=== PATIENT | male | born 1985 | race Caucasian/White ===

== ENCOUNTER 2016-04-19 16:18 | Emergency (ER) | payer OTHER ==
[2016-04-19 16:29] VITALS: TEMP 97.3
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
[2016-04-19 19:51] VITALS: BP 140/86; PULSE 54; RESP 16
== END 2016-04-19 19:51 | disposition home or self-care (01) ==
LOC: EC 16:18
DX: F41.9 Anxiety disorder, unspecified (principal); F10.20 Alcohol dependence, uncomplicated; G40.909 Epilepsy, unspecified, not intractable, without status epilepticus; I10 Essential (primary) hypertension; F31.9 Bipolar disorder, unspecified; Z79.899 Other long term (current) drug therapy; Z88.5 Allergy status to narcotic agent; Z87.442 Personal history of urinary calculi; B19.20 Unspecified viral hepatitis C without hepatic coma; F17.200 Nicotine dependence, unspecified, uncomplicated
CPT/HCPCS: 80306; 82075; 99284

== ENCOUNTER 2016-04-20 10:31 | Emergency (ER) | payer OTHER ==
[2016-04-20 11:21] VITALS: RESP 18
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
[2016-04-20] MEDS ORDERED: LORazepam 1 MG TAB PO STA (15:34)
[2016-04-20 16:10] VITALS: BP 120/68; PULSE 88; TEMP 97.6
== END 2016-04-20 16:10 | disposition home or self-care (01) ==
LOC: EC 10:31
DX: F31.9 Bipolar disorder, unspecified (principal); I10 Essential (primary) hypertension; G40.909 Epilepsy, unspecified, not intractable, without status epilepticus; F41.9 Anxiety disorder, unspecified; F43.10 Post-traumatic stress disorder, unspecified; F17.200 Nicotine dependence, unspecified, uncomplicated; F12.90 Cannabis use, unspecified, uncomplicated; Z88.5 Allergy status to narcotic agent; Z79.899 Other long term (current) drug therapy; Z79.51 Long term (current) use of inhaled steroids
CPT/HCPCS: 80306; 82075; 99284

== ENCOUNTER → 2016-05-01 | Outpatient (CLI) | payer OTHER ==
[2016-05-01 20:12] LABS: Anion Gap 15 mmol/L; Blood Urea Nitrogen 12 mg/dL (9-20); Calcium 9.7 mg/dL (8.4-10.2); Carbon Dioxide 24 mmol/L (22-30); Chloride 102 mmol/L (98-107); Glucose 104 mg/dL (74-99); Non-African American GFR(MDRD) >60 (>60 ml/min/1.73 sqM); Potassium 3.7 mmol/L (3.5-5.1); Sodium 141 mmol/L (137-145)
== END | disposition home or self-care (01) ==
LOC: LAB 19:25
PROVIDERS: ATTEND Psychiatry & Neurology Psychiatry
DX: T50.905A Adverse effect of unspecified drugs, medicaments and biological substances, initial encounter (principal)
CPT/HCPCS: 80048; 80164

== ENCOUNTER 2017-02-27 08:14 | Emergency (ER) | payer OTHER ==
[2017-02-27 08:27] VITALS: RESP 18
[2017-02-27] MEDS ORDERED: ONDANSETRON 4 MG/2 ML VIAL IVP STA ×2 (08:42→10:29)
[2017-02-27] MEDS ORDERED: FAMOTIDINE 20 MG/2 ML VIAL IV STA (08:42)
--- NOTE | 2017-02-27 08:43 | ED ---
General Adult HPI - General Chief complaint: Abdominal Pain Stated complaint: Abd.pain Time Seen by Provider: 02/27/17 08:31 Source: patient, RN notes reviewed Mode of arrival: wheelchair Limitations: no limitations - History of Present Illness Initial comments: Patient 31-year-old male who presents emergency room today with chief complaint of chronic abdominal pain has been ongoing off and on over the last 5 months. He has been that he's had nausea vomiting and some softer stools. He admits that he feels some discomfort and cramping sensation in his abdomen at times. He also has some chronic shoulder pain as well. He states is from an old injury. He denies any new injuries. He does admit that the pain is worse certain movements. He denies any other complaints associated symptoms. Patient denies any recent fever, chills, shortness of breath, chest pain, back pain, numbness or tingling, dysuria or hematuria, constipation or diarrhea, headaches or visual changes, or any other complaints. - Related Data Home Medications Medication Instructions Recorded Confirmed Multivitamins, Thera [Multivitamin 1 tab PO DAILY 02/27/17 02/27/17 (formulary)] Previous Rx's Medication Instructions Recorded Hydrocodone/Acetaminophen [[place] 1 each PO Q6HR PRN #15 tab 02/27/17 5-325] Ibuprofen [Motrin] 800 mg PO Q6HR #30 tab 02/27/17 Ondansetron Odt [Zofran ODT] 4 mg PO Q8HR PRN #20 tab 02/27/17 Tamsulosin [Flomax] 0.4 mg PO DAILY #10 cap 02/27/17 Allergies Allergy/AdvReac Type Severity Reaction Status Date / Time tramadol Allergy HIVES AND Verified 02/27/17 08:35 SEIZURE Review of Systems ROS Statement: Those systems with pertinent positive or pertinent negative responses have been documented in the HPI. ROS Other: All systems not noted in ROS Statement are negative. Past Medical History Past Medical History: Hypertension, Seizure Disorder Additional Past Medical History / Comment(s): Hepatitis C, stomach ulcer, weight loss, ETOH abuse, kidney stones History of Any Multi-Drug Resistant Organisms: None Reported Additional Past Surgical History / Comment(s): lazy eye surgery, right ankle surgery Past Anesthesia/Blood Transfusion Reactions: No Reported Reaction Past Psychological History: Anxiety, Bipolar, Depression, PTSD Smoking Status: Current every day smoker Past Alcohol Use History: Occasional Past Drug Use History: Marijuana - Past Family History Father Additional Family Medical History / Comment(s): cirrhosis of liver Mother Additional Family Medical History / Comment(s): cirrhosis of liver and heroin overdose General Exam - General Exam Comments Initial Comments: General: The patient is awake and alert, in no distress, and does not appear acutely ill. Eye: Pupils are equal, round and reactive to light, extra-ocular movements are intact. No nystagmus. There is normal conjunctiva bilaterally. No signs of icterus. Ears, nose, mouth and throat: There are moist mucous membranes and no oral lesions. Neck: The neck is supple, there is no tenderness or JVD. Cardiovascular: There is a regular rate and rhythm. No murmur, rub or gallop is appreciated. Respiratory: Lungs are clear to auscultation, respirations are non-labored, breath sounds are equal. No wheezes, stridor, rales, or rhonchi. Gastrointestinal: Soft, non-distended, non-tender abdomen without masses or organomegaly noted. There is no rebound or guarding present. No CVA tenderness. Bowel sounds are unremarkable. Musculoskeletal: Normal ROM, no tenderness. Strength 5/5. Sensation intact. Pulses equal bilaterally 2+. Neurological: A&O x 3. CN II-XII intact, There are no obvious motor or sensory deficits. Coordination appears grossly intact. Speech is normal. Skin: Skin is warm and dry and no rashes or lesions are noted. Psychiatric: Cooperative, appropriate mood & affect, normal judgment. Limitations: no limitations Course Vital Signs 02/27/17 08:24 Temperature 98.0 F Pulse Rate 76 Respiratory 18 Rate Blood Pressure 129/85 O2 Sat by Pulse 100 Oximetry Medical Decision Making - Medical Decision Making Patient reexamined at this time shows no signs of distress. He does admit to some discomfort. Patient's labs were reviewed and does show a large amount of blood in his urine. He does be to history kidney stones but states this did not seem similar. Patient did have CT which does show a 4 mm calculus at the mid right ureter without appreciable hydronephrosis at this time. Bilateral nonobstructive nephrolithiasis measuring 4 mm on either side. There is hepatic stenosis. Patient's liver enzymes mildly elevated. This hematocrit being a drinker in the past. Patient as well as follow-up family doctor for elevated liver enzymes. Also be given urology on-call for kidney stone. Patient does admit some right-sided chronic shoulder pain given orthopedics on-call for this. Patient advised return if symptoms increase worsen or for any other concerns. - Lab Data Result diagrams: 02/27/17 08:50 02/27/17 08:50 Lab Results 02/27/17 02/27/17 02/27/17 Range/Units 08:50 08:50 08:50 WBC 6.1 (3.8-10.6) k/uL RBC 5.81 (4.30-5.90) m/uL Hgb 17.5 (13.0-17.5) gm/dL Hct 51.3 (39.0-53.0) % MCV 88.4 (80.0-100.0) fL MCH 30.1 (25.0-35.0) pg MCHC 34.0 (31.0-37.0) g/dL RDW 14.9 (11.5-15.5) % Plt Count 189 (150-450) k/uL Neutrophils % 70 % Lymphocytes % 19 % Monocytes % 7 % Eosinophils % 2 % Basophils % 0 % Neutrophils # 4.3 (1.3-7.7) k/uL Lymphocytes # 1.1 (1.0-4.8) k/uL Monocytes # 0.4 (0-1.0) k/uL Eosinophils # 0.1 (0-0.7) k/uL Basophils # 0.0 (0-0.2) k/uL Sodium 139 (137-145) mmol/L Potassium 4.1 (3.5-5.1) mmol/L Chloride 101 (98-107) mmol/L Carbon Dioxide 25 (22-30) mmol/L Anion Gap 13 mmol/L BUN 9 (9-20) mg/dL Creatinine 0.76 (0.66-1.25) mg/dL Est GFR (MDRD) Af Amer >60 (>60 ml/min/1.73 sqM) Est GFR (MDRD) Non-Af >60 (>60 ml/min/1.73 sqM) Glucose 95 (74-99) mg/dL Calcium 9.9 (8.4-10.2) mg/dL Total Bilirubin 0.5 (0.2-1.3) mg/dL AST 90 H (17-59) U/L ALT 121 H (21-72) U/L Alkaline Phosphatase 144 H (38-126) U/L Total Protein 8.1 (6.3-8.2) g/dL Albumin 4.6 (3.5-5.0) g/dL Amylase 43 (30-110) U/L Lipase 59 (23-300) U/L Urine Color Light Red Urine Appearance Clear (Clear) Urine pH 6.5 (5.0-8.0) Ur Specific [place] 1.027 (1.001-1.035) Urine Protein 1+ H (Negative) Urine Glucose (UA) Negative (Negative) Urine Ketones Trace H (Negative) Urine Blood Large H (Negative) Urine Nitrite Negative (Negative) Urine Bilirubin Negative (Negative) Urine Urobilinogen 6.0 (<2.0) mg/dL Ur Leukocyte Esterase Small H (Negative) Urine RBC >182 H (0-5) /hpf Urine WBC 1 (0-5) /hpf Urine Bacteria Rare H (None) /hpf Urine Mucus Few H (None) /hpf Disposition Clinical Impression: Kidney stone on right side, Chronic right shoulder pain, Elevated liver enzymes Disposition: HOME SELF-CARE Condition: Good Instructions: Kidney Stones (ED) Additional Instructions: Please use medication as discussed. Please follow-up with orthopedics/urologist /family doctor in the next 2 days. Please return to emergency room if the symptoms increase or worsen or for any other concerns. Prescriptions: Hydrocodone/Acetaminophen [[place] 5-325] 1 each PO Q6HR PRN #15 tab PRN Reason: Pain Ibuprofen [Motrin] 800 mg PO Q6HR #30 tab Ondansetron Odt [Zofran ODT] 4 mg PO Q8HR PRN #20 tab PRN Reason: Nausea Tamsulosin [Flomax] 0.4 mg PO DAILY #10 cap Referrals: Lisa Meek MD [Primary Care Provider] - 1-2 days Wilian Haines MD [STAFF PHYSICIAN] - 1-2 days Yayo Dan MD [STAFF PHYSICIAN] - 1-2 days Time of Disposition: 10:39
[2017-02-27 09:20] LABS: Basophils % (A) 0 %; CH 30.2; CHCM 34.4; Eosinophils # (A) 0.1 k/uL (0-0.7); Eosinophils % (A) 2 %; HCT 51.3 % (39.0-53.0); HDW 2.42; HGB 17.5 gm/dL (13.0-17.5); Luc # (Auto) 0.08; Luc % (Auto) 1; Lymphocytes # (A) 1.1 k/uL (1.0-4.8); Lymphocytes % (A) 19 %; MCH 30.1 pg (25.0-35.0); MCV 88.4 fL (80.0-100.0); Mean Platelet Volume 8.1; Monocytes # (A) 0.4 k/uL (0-1.0); Monocytes % (A) 7 %; Neutrophils # (A) 4.3 k/uL (1.3-7.7); Neutrophils % (A) 70 %; RBC 5.81 m/uL (4.30-5.90); RDW 14.9 % (11.5-15.5); WBC 6.1 k/uL (3.8-10.6); WBC (Perox) 5.98
--- NOTE | 2017-02-27 09:22 | XR ---
EXAMINATION TYPE: XR KUB DATE OF EXAM: 02/27/2017 9:15 AM CLINICAL HISTORY: Lower abdominal pain for 5 months with vomiting. TECHNIQUE: Two Upright KUB images of the abdomen are obtained. COMPARISON: CT abdomen and pelvis April 14, 2016. Abdominal x-ray April 03, 2016. FINDINGS: Bilateral renal calculi are redemonstrated seen better on CT versus plain films. On plain f ilms there are 3-5 small calculi identified bilaterally on measuring under 5 [address] in size[address] On CT there are approximately 8-10 calculi bilaterally all measuring under 5 mm in size. There is overall nonobstructive bowel gas pattern. Visualized lung bases are clear. No pneumoperitone um is present. Visualized osseous structures are intact. IMPRESSION: Overall nonobstructive bowel gas pattern. Redemonstration of bilateral nephrolithiasis.
[2017-02-27 09:29] LABS: Appearance,Urine Clear (Clear); Bacteria,Urine Rare /hpf; Bilirubin,Urine Negative (Negative); Glucose,Urine (UA) Negative (Negative); Ketones,Urine Trace (Negative); Leukocyte Esterase,Urine Small (Negative); Mucus,Urine Few /hpf; Nitrite,Urine Negative (Negative); PH, Urine 6.5 (5.0-8.0); Particle Count 4040; Protein,Urine 1+ (Negative); RBC,Urine >182 /hpf (0-5); Specific Gravity,Urine 1.027 (1.001-1.035); UA Billing (MACRO vs. MICRO) MICRO; WBC,Urine 1 /hpf (0-5)
[2017-02-27 09:34] LABS: ALT 121 U/L (21-72); AST 90 U/L (17-59); Alkaline Phosphatase 144 U/L (38-126); Amylase 43 U/L (30-110); Anion Gap 13 mmol/L; Blood Urea Nitrogen 9 mg/dL (9-20); Calcium 9.9 mg/dL (8.4-10.2); Carbon Dioxide 25 mmol/L (22-30); Chloride 101 mmol/L (98-107); Glucose 95 mg/dL (74-99); Non-African American GFR(MDRD) >60 (>60 ml/min/1.73 sqM); Potassium 4.1 mmol/L (3.5-5.1); Sodium 139 mmol/L (137-145); Total Bilirubin 0.5 mg/dL (0.2-1.3); Total Protein 8.1 g/dL (6.3-8.2)
--- NOTE | 2017-02-27 10:20 | CT ---
EXAMINATION TYPE: CT abdomen pelvis wo con DATE OF EXAM: 02/27/2017 COMPARISON: 04/14/2016 HISTORY: 31-year-old male right sided pain, umbilical pain, microscopic hematuria CT DLP: 682 mGycm. Automated exposure control for dose reduction was used. TECHNIQUE: Contiguous axial scanning of the abdomen and pelvis without IV contrast. Coronal and sagit eileen reconstructions performed. FINDINGS: The heart is normal size without pericardial effusion. Tiny hiatal hernia. Lung bases clear without p leural effusion. Diffuse low-attenuation of the hepatic parenchyma compatible with fatty infiltration. More focal fat anteriorly along the falciform ligament. Noncontrast appearance of the gallbladder, adrenal glands,, spleen, and pancreas show no gross abnorm ality. In the right kidney, there are 9 nonobstructive calculi measuring up to 4 mm. There is a 4 mm calculu s at the mid right ureter without hydronephrosis. On the left, there are 7 nonobstructive calculi measuring up to 4 mm. No dilated small bowel, free fluid, or free air. No mesenteric or retroperitoneal lymphadenopathy. Mild overall stool burden. There is some submucosal fat deposition noted within the right hemicolon a nd distal ileum which could reflect recurrent bouts of prior inflammation or intrahepatic from obesit y. Bladder nondistended. Prostate gland measures 3.8 cm wide. No abnormal fluid collection in the pelvis or pelvic lymphadenopathy. Bones: No osseous destructive process. Calculus at the mid right ureter but without significant hydronephrosis. IMPRESSION: 1. A 4 mm calculus at the mid right ureter without appreciable hydronephrosis at this time. 2. Bilateral nonobstructive nephrolithiasis measuring up to 4 mm on either side. 3. Hepatic steatosis.
[2017-02-27] MEDS ORDERED: KETOROLAC 30 MG/ML 1 ML VIAL IVP STA (10:21)
[2017-02-27 10:55] VITALS: BP 146/77; PULSE 65; TEMP 98.7
== END 2017-02-27 10:55 | disposition home or self-care (01) ==
LOC: EC 08:14
DX: N20.2 Calculus of kidney with calculus of ureter (principal); M25.511 Pain in right shoulder; G89.29 Other chronic pain; R74.8 Abnormal levels of other serum enzymes; K76.0 Fatty (change of) liver, not elsewhere classified; F17.200 Nicotine dependence, unspecified, uncomplicated; Z88.5 Allergy status to narcotic agent; Z79.899 Other long term (current) drug therapy
CPT/HCPCS: 99284; 96374; 96375 ×2; 96376; 36415; 80053; 82150; 83690; 85025; 81001; 74000; 74176; J2405; J1885

== ENCOUNTER 2017-03-13 13:25 | Emergency (ER) | payer OTHER ==
[2017-03-13 14:08] VITALS: RESP 18
[2017-03-13] MEDS ORDERED: ONDANSETRON 4 MG/2 ML VIAL IVP STA (15:43)
[2017-03-13] MEDS ORDERED: SODIUM CHLORIDE 0.9% 500 ML IV STA (15:43)
[2017-03-13] MEDS ORDERED: KETOROLAC 30 MG/ML 1 ML VIAL IVP STA (15:43)
--- NOTE | 2017-03-13 16:05 | ED ---
General Adult HPI - General Chief complaint: Abdominal Pain Stated complaint: poss kidney stones Time Seen by Provider: 03/13/17 14:10 Source: patient, RN notes reviewed Mode of arrival: ambulatory Limitations: no limitations - History of Present Illness Initial comments: This is a 31-year-old male presents emergency Department complaining that his kidney stone pain for last weeks to 2 weeks. Patient states the pain is not getting any better and he did not follow up with urology like he was told. Patient states she still nauseated and occasionally vomits. Patient states he still has some blood in his urine. Patient has no pain medicines left knee has no nausea medicine left. - Related Data Home Medications Medication Instructions Recorded Confirmed Multivitamins, Thera [Multivitamin 1 tab PO DAILY 02/27/17 03/13/17 (formulary)] Hydrocodone/Acetaminophen [[place] 1 tab PO Q6HR PRN 03/13/17 03/13/17 5-325] Previous Rx's Medication Instructions Recorded Ibuprofen [Motrin] 800 mg PO Q6HR #30 tab 02/27/17 Ondansetron Odt [Zofran ODT] 4 mg PO Q8HR PRN #20 tab 02/27/17 Tamsulosin [Flomax] 0.4 mg PO DAILY #10 cap 02/27/17 Ketorolac [Toradol] 10 mg PO Q6HR #15 tab 03/13/17 Ondansetron [Zofran] 4 mg PO Q6H PRN #10 tab 03/13/17 Allergies Allergy/AdvReac Type Severity Reaction Status Date / Time tramadol Allergy HIVES AND Verified 03/13/17 15:41 SEIZURE Review of Systems ROS Statement: Those systems with pertinent positive or pertinent negative responses have been documented in the HPI. ROS Other: All systems not noted in ROS Statement are negative. Past Medical History Past Medical History: Hypertension, Seizure Disorder Additional Past Medical History / Comment(s): Hepatitis C, stomach ulcer, weight loss, ETOH abuse, kidney stones History of Any Multi-Drug Resistant Organisms: None Reported Additional Past Surgical History / Comment(s): lazy eye surgery, right ankle surgery Past Anesthesia/Blood Transfusion Reactions: No Reported Reaction Past Psychological History: Anxiety, Bipolar, Depression, PTSD Smoking Status: Current every day smoker Past Alcohol Use History: Occasional Past Drug Use History: Marijuana - Past Family History Father Additional Family Medical History / Comment(s): cirrhosis of liver Mother Additional Family Medical History / Comment(s): cirrhosis of liver and heroin overdose General Exam - General Exam Comments Initial Comments: GENERAL: Patient is well-developed and well-nourished. Patient is nontoxic and well- hydrated and is in mild distress. ENT: Neck is soft and supple. No significant lymphadenopathy is noted. Oropharynx is clear. Moist mucous membranes. Neck has full range of motion without eliciting any pain. EYES: The sclera were anicteric and conjunctiva were pink and moist. Extraocular movements were intact and pupils were equal round and reactive to light. Eyelids were unremarkable. PULMONARY: Unlabored respirations. Good breath sounds bilaterally. No audible rales rhonchi or wheezing was noted. CARDIOVASCULAR: There is a regular rate and rhythm without any murmurs gallops or rubs. ABDOMEN: Soft and nontender with normal bowel sounds. No palpable organomegaly was noted. There is no palpable pulsatile mass. SKIN: Skin is clear with no lesions or rashes and otherwise unremarkable. NEUROLOGIC: Patient is alert and oriented x3. Cranial nerves II through XII are grossly intact. Motor and sensory are also intact. Normal speech, volume and content. Symmetrical smile. MUSCULOSKELETAL: Normal extremities with adequate strength and full range of motion. LYMPHATICS: No significant lymphadenopathy is noted PSYCHIATRIC: Normal psychiatric evaluation. Limitations: no limitations Course Vital Signs 03/13/17 03/13/17 14:06 16:50 Temperature 97.9 F 98.0 F Pulse Rate 74 54 L Respiratory 18 18 Rate Blood Pressure 139/96 138/81 O2 Sat by Pulse 98 99 Oximetry Medical Decision Making - Medical Decision Making I will back into reevaluate the patient he was in no distress his belly was nontender at this time. Patient states he has hepatitis C which was not told me initially. This explains the mildly elevated liver enzymes - Lab Data Result diagrams: 03/13/17 15:40 03/13/17 15:40 Lab Results 03/13/17 03/13/17 03/13/17 Range/Units 15:40 15:40 15:40 WBC 6.2 (3.8-10.6) k/uL RBC 5.54 (4.30-5.90) m/uL Hgb 16.6 (13.0-17.5) gm/dL Hct 48.2 (39.0-53.0) % MCV 87.0 (80.0-100.0) fL MCH 30.0 (25.0-35.0) pg MCHC 34.5 (31.0-37.0) g/dL RDW 13.4 (11.5-15.5) % Plt Count 166 (150-450) k/uL Neutrophils % 70 % Lymphocytes % 20 % Monocytes % 7 % Eosinophils % 1 % Basophils % 0 % Neutrophils # 4.3 (1.3-7.7) k/uL Lymphocytes # 1.3 (1.0-4.8) k/uL Monocytes # 0.4 (0-1.0) k/uL Eosinophils # 0.0 (0-0.7) k/uL Basophils # 0.0 (0-0.2) k/uL Sodium 139 (137-145) mmol/L Potassium 4.2 (3.5-5.1) mmol/L Chloride 105 (98-107) mmol/L Carbon Dioxide 25 (22-30) mmol/L Anion Gap 9 mmol/L BUN 7 L (9-20) mg/dL Creatinine 0.67 (0.66-1.25) mg/dL Est GFR (MDRD) Af Amer >60 (>60 ml/min/1.73 sqM) Est GFR (MDRD) Non-Af >60 (>60 ml/min/1.73 sqM) Glucose 100 H (74-99) mg/dL Calcium 9.7 (8.4-10.2) mg/dL Total Bilirubin 1.0 (0.2-1.3) mg/dL AST 85 H (17-59) U/L ALT 80 H (21-72) U/L Alkaline Phosphatase 136 H (38-126) U/L Total Protein 7.8 (6.3-8.2) g/dL Albumin 4.5 (3.5-5.0) g/dL Amylase 62 (30-110) U/L Lipase 57 (23-300) U/L Urine Color Dark Yellow Urine Appearance Clear (Clear) Urine pH 8.5 H (5.0-8.0) Ur Specific [place] 1.021 (1.001-1.035) Urine Protein 1+ H (Negative) Urine Glucose (UA) Negative (Negative) Urine Ketones Trace H (Negative) Urine Blood Negative (Negative) Urine Nitrite Negative (Negative) Urine Bilirubin 1+ H (Negative) Urine Urobilinogen 8.0 (<2.0) mg/dL Ur Leukocyte Esterase Negative (Negative) Urine RBC 1 (0-5) /hpf Urine WBC 1 (0-5) /hpf Urine Mucus Few H (None) /hpf Disposition Clinical Impression: Abdominal pain Disposition: HOME SELF-CARE Instructions: Abdominal Pain (ED) Prescriptions: Ketorolac [Toradol] 10 mg PO Q6HR #15 tab Ondansetron [Zofran] 4 mg PO Q6H PRN #10 tab PRN Reason: Nausea And Vomiting Referrals: Lisa Meek MD [Primary Care Provider] - 1-2 days Time of Disposition: 17:20
[2017-03-13 16:27] LABS: Basophils % (A) 0 %; CH 30.8; CHCM 35.6; Eosinophils % (A) 1 %; HCT 48.2 % (39.0-53.0); HDW 2.61; HGB 16.6 gm/dL (13.0-17.5); Luc # (Auto) 0.14; Luc % (Auto) 2; Lymphocytes # (A) 1.3 k/uL (1.0-4.8); Lymphocytes % (A) 20 %; MCHC 34.5 g/dL (31.0-37.0); Mean Platelet Volume 7.2; Monocytes # (A) 0.4 k/uL (0-1.0); Monocytes % (A) 7 %; Neutrophils # (A) 4.3 k/uL (1.3-7.7); Neutrophils % (A) 70 %; RBC 5.54 m/uL (4.30-5.90); RDW 13.4 % (11.5-15.5); WBC 6.2 k/uL (3.8-10.6); WBC (Perox) 5.81
[2017-03-13 16:32] LABS: Appearance,Urine Clear (Clear); Bilirubin,Urine 1+ (Negative); Glucose,Urine (UA) Negative (Negative); Ketones,Urine Trace (Negative); Leukocyte Esterase,Urine Negative (Negative); Mucus,Urine Few /hpf; Nitrite,Urine Negative (Negative); PH, Urine 8.5 (5.0-8.0); Particle Count 3227; Protein,Urine 1+ (Negative); RBC,Urine 1 /hpf (0-5); Specific Gravity,Urine 1.021 (1.001-1.035); UA Billing (MACRO vs. MICRO) MICRO; WBC,Urine 1 /hpf (0-5)
[2017-03-13 16:42] LABS: ALT 80 U/L (21-72); AST 85 U/L (17-59); Alkaline Phosphatase 136 U/L (38-126); Amylase 62 U/L (30-110); Anion Gap 9 mmol/L; Blood Urea Nitrogen 7 mg/dL (9-20); Calcium 9.7 mg/dL (8.4-10.2); Carbon Dioxide 25 mmol/L (22-30); Chloride 105 mmol/L (98-107); Glucose 100 mg/dL (74-99); Non-African American GFR(MDRD) >60 (>60 ml/min/1.73 sqM); Potassium 4.2 mmol/L (3.5-5.1); Sodium 139 mmol/L (137-145); Total Protein 7.8 g/dL (6.3-8.2)
[2017-03-13 16:53] VITALS: BP 138/81; PULSE 54; TEMP 98
== END 2017-03-13 17:39 | disposition home or self-care (01) ==
LOC: EC 13:25
DX: R10.9 Unspecified abdominal pain (principal); R11.2 Nausea with vomiting, unspecified; R31.9 Hematuria, unspecified; R74.8 Abnormal levels of other serum enzymes; F17.200 Nicotine dependence, unspecified, uncomplicated; Z79.899 Other long term (current) drug therapy; Z88.5 Allergy status to narcotic agent; Z83.79 Family history of other diseases of the digestive system
CPT/HCPCS: 36415; 80053; 82150; 83690; 85025; 81001; 99284; 96374; 96375; 96361; J2405; J1885

== ENCOUNTER 2017-04-05 01:58 | Emergency (ER) | payer OTHER ==
[2017-04-05 02:03] VITALS: BP 157/102; PULSE 77; RESP 20; TEMP 99
[2017-04-05] MEDS ORDERED: KETOROLAC 60 MG/2 ML VIAL IM STA (02:45)
[2017-04-05] MEDS ORDERED: AZITHROMYCIN 500 MG TAB PO STA (02:45)
[2017-04-05] MEDS ORDERED: IPRATROPIUM-ALBUTEROL 3 ML NEB INHALATION STA (02:45)
--- NOTE | 2017-04-05 02:47 | XR ---
EXAM: XR Chest, 2 Views CLINICAL HISTORY: Reason: Pain TECHNIQUE: Frontal and lateral views of the chest. COMPARISON: 04/04/16 FINDINGS: Lungs: Unremarkable. No consolidation. Pleural space: Unremarkable. No pneumothorax. Heart: Unremarkable. No cardiomegaly. Mediastinum: Unremarkable. Bones/joints: Unremarkable. IMPRESSION: No acute radiographic findings.
--- NOTE | 2017-04-05 02:49 | ED ---
General Adult HPI - General Chief complaint: Chest Pain Stated complaint: ETOH,cough Time Seen by Provider: 04/05/17 02:04 Source: EMS, RN notes reviewed, old records reviewed Mode of arrival: EMS Limitations: no limitations - History of Present Illness Initial comments: this is a 31-year-old male to the ER for evaluation. The patient presented for evaluation regards to chest pain abdominal pain. shortness of breath. Patient does admit to positive acute alcohol intoxication. Patient states symptoms for 6 days worsened today. Patient denies any recent sick contacts or travel history. No fevers. - Related Data Previous Rx's Medication Instructions Recorded Albuterol Sulfate [Proair Hfa] 1 - 2 puff INHALATION Q4H PRN #1 04/05/17 inhaler Azithromycin [Zithromax Z-pack] 0 mg PO DIRECTED #1 pack 04/05/17 Naproxen [Naprosyn] 500 mg PO Q12HR PRN #30 tab 04/05/17 Allergies Allergy/AdvReac Type Severity Reaction Status Date / Time tramadol Allergy HIVES AND Verified 03/27/17 14:20 SEIZURE Review of Systems ROS Statement: Those systems with pertinent positive or pertinent negative responses have been documented in the HPI. ROS Other: All systems not noted in ROS Statement are negative. Past Medical History Past Medical History: Hypertension, Seizure Disorder Additional Past Medical History / Comment(s): Hepatitis C, stomach ulcer, weight loss, ETOH abuse, kidney stones History of Any Multi-Drug Resistant Organisms: None Reported Additional Past Surgical History / Comment(s): lazy eye surgery, right ankle surgery Past Anesthesia/Blood Transfusion Reactions: No Reported Reaction Past Psychological History: Anxiety, Bipolar, Depression, PTSD Smoking Status: Current every day smoker Past Alcohol Use History: Abuse, Daily Past Drug Use History: Marijuana - Past Family History Father Additional Family Medical History / Comment(s): cirrhosis of liver Mother Additional Family Medical History / Comment(s): cirrhosis of liver and heroin overdose General Exam Limitations: no limitations General appearance: alert, appears intoxicated Head exam: Present: atraumatic, normocephalic, normal inspection Eye exam: Present: normal appearance, PERRL, EOMI. Absent: scleral icterus, conjunctival injection, periorbital swelling ENT exam: Present: normal exam, mucous membranes moist Neck exam: Present: normal inspection. Absent: tenderness, meningismus, lymphadenopathy Respiratory exam: Present: normal lung sounds bilaterally, wheezes, decreased breath sounds, prolonged expiratory. Absent: respiratory distress, rales, rhonchi, stridor Cardiovascular Exam: Present: regular rate, normal rhythm, normal heart sounds. Absent: systolic murmur, diastolic murmur, rubs, gallop, clicks GI/Abdominal exam: Present: soft, normal bowel sounds. Absent: distended, tenderness, guarding, rebound, rigid Extremities exam: Present: normal inspection, full ROM, normal capillary refill. Absent: tenderness, pedal edema, joint swelling, calf tenderness Back exam: Present: normal inspection Neurological exam: Present: alert, oriented X3, CN II-XII intact Psychiatric exam: Present: normal affect, normal mood Skin exam: Present: warm, dry, intact, normal color. Absent: rash Course Vital Signs 04/05/17 01:59 Temperature 99.0 F Pulse Rate 77 Respiratory 20 Rate Blood Pressure 157/102 O2 Sat by Pulse 100 Oximetry - Reevaluation(s) Reevaluation #1: 04/05/17 02:48 symptoms improved with breathing treatment pain control Reevaluation #2: 04/05/17 02:48 patient's medical record and ER visits are thoroughly reviewed EKG Findings - EKG Comments: EKG Findings:: EKG shows normal sinus rhythm rate of 84, [place] 150, QRS 90, QTc 423 Medical Decision Making - Medical Decision Making 31 male the ER for evaluation associated for evaluation regarding the chest pain chest pain left-sided chest pain left-sided abdominal pain. Patient has normal EKG normal x-ray positive alcohol intoxication, patient is embarrassed for coming in with chest pain avoid strong, patient will notice emergency room for psychiatric visits. No fevers. Patient's feeling better with breathing treatment pain control, can be discharged home - Radiology Data Radiology results: report reviewed (chest x-ray is negative for acute disease), image reviewed Disposition Clinical Impression: Alcohol intoxication, Abdominal pain, Chest pain, Acute bronchitis Disposition: HOME SELF-CARE Condition: Good Instructions: Acute Bronchitis (ED) Prescriptions: Albuterol Sulfate [Proair Hfa] 1 - 2 puff INHALATION Q4H PRN #1 inhaler PRN Reason: Shortness Of Breath Azithromycin [Zithromax Z-pack] 0 mg PO DIRECTED #1 pack Naproxen [Naprosyn] 500 mg PO Q12HR PRN #30 tab PRN Reason: Pain Referrals: None,Stated [Primary Care Provider] - 1-2 days
== END 2017-04-05 03:18 | disposition home or self-care (01) ==
LOC: EC 01:58
DX: F10.120 Alcohol abuse with intoxication, uncomplicated (principal); J20.9 Acute bronchitis, unspecified; R10.9 Unspecified abdominal pain; F17.200 Nicotine dependence, unspecified, uncomplicated; Z88.6 Allergy status to analgesic agent; Z53.20 Procedure and treatment not carried out because of patient's decision for unspecified reasons
CPT/HCPCS: 71020; 93005; 99285

== ENCOUNTER 2017-04-14 14:43 | Emergency (ER) | payer OTHER ==
[2017-04-14] MEDS ORDERED: ONDANSETRON 4 MG/2 ML VIAL IVP STA (15:05)
[2017-04-14] MEDS ORDERED: SODIUM CHLORIDE 0.9% 1,000 ML IV STA (15:05)
[2017-04-14] MEDS ORDERED: LORazepam 2 MG/ML INJ IV STA ×2 (15:05→16:07)
--- NOTE | 2017-04-14 15:17 | ED ---
General Adult HPI - General Chief complaint: Nausea/Vomiting/Diarrhea Stated complaint: Vomiting Time Seen by Provider: 04/14/17 14:58 Source: patient, RN notes reviewed Mode of arrival: wheelchair Limitations: no limitations - History of Present Illness Initial comments: Patient is a 31-year-old male who presents emergency room today with chief complaint of cough congestion over the last month. Patient states has Production at times. Also admits that he's had some symptoms of nausea vomiting the last 2 days. States he last drank 14 hours ago and last 12 hours she's had increased vomiting. Patient states she is trying to stop drinking for the new year. He states that he has had withdrawal symptoms in the past. He denies any other complaints. Patient denies any recent fever, chills, shortness of breath, chest pain, back pain, numbness or tingling, dysuria or hematuria, constipation, headaches or visual changes, or any other complaints. - Related Data Previous Rx's Medication Instructions Recorded Ondansetron Odt [Zofran ODT] 4 mg PO Q8HR PRN #20 tab 04/14/17 Cbfe-Phsk-Fzv 6.25-5-10Mg/5Ml 5 ml PO Q4-6H 5 Days ml 04/14/17 [Phenergan VC with Codeine] chlordiazePOXIDE HCl [Librium] 25 mg PO DIRECTED #22 capsule 04/14/17 cloNIDine HCL [Catapres] 0.1 mg PO BID #6 tab 04/14/17 Allergies Allergy/AdvReac Type Severity Reaction Status Date / Time tramadol Allergy HIVES AND Verified 04/14/17 15:03 SEIZURE Review of Systems ROS Statement: Those systems with pertinent positive or pertinent negative responses have been documented in the HPI. ROS Other: All systems not noted in ROS Statement are negative. Past Medical History Past Medical History: Hypertension, Seizure Disorder Additional Past Medical History / Comment(s): Hepatitis C, stomach ulcer, weight loss, ETOH abuse, kidney stones History of Any Multi-Drug Resistant Organisms: None Reported Additional Past Surgical History / Comment(s): lazy eye surgery, right ankle surgery Past Anesthesia/Blood Transfusion Reactions: No Reported Reaction Past Psychological History: Anxiety, Bipolar, Depression, PTSD Smoking Status: Current every day smoker Past Alcohol Use History: Abuse, Daily Past Drug Use History: Marijuana - Past Family History Father Additional Family Medical History / Comment(s): cirrhosis of liver Mother Additional Family Medical History / Comment(s): cirrhosis of liver and heroin overdose General Exam - General Exam Comments Initial Comments: General: The patient is awake and alert, in no distress, and does not appear acutely ill. Eye: Pupils are equal, round and reactive to light, extra-ocular movements are intact. No nystagmus. There is normal conjunctiva bilaterally. No signs of icterus. Ears, nose, mouth and throat: There are moist mucous membranes and no oral lesions. Neck: The neck is supple, there is no tenderness or JVD. Cardiovascular: There is a regular rate and rhythm. No murmur, rub or gallop is appreciated. Respiratory: Lungs are clear to auscultation, respirations are non-labored, breath sounds are equal. No wheezes, stridor, rales, or rhonchi. Gastrointestinal: Soft, non-distended, non-tender abdomen without masses or organomegaly noted. There is no rebound or guarding present. No CVA tenderness. Bowel sounds are unremarkable. Musculoskeletal: Normal ROM, no tenderness. Strength 5/5. Sensation intact. Pulses equal bilaterally 2+. Neurological: A&O x 3. CN II-XII intact, There are no obvious motor or sensory deficits. Coordination appears grossly intact. Speech is normal. Skin: Skin is warm and dry and no rashes or lesions are noted. Psychiatric: Cooperative, appropriate mood & affect, normal judgment. Limitations: no limitations Course Vital Signs 04/14/17 14:55 Temperature 97.5 F L Pulse Rate 80 Respiratory 20 Rate Blood Pressure 137/95 O2 Sat by Pulse 98 Oximetry Medical Decision Making - Medical Decision Making Patient blood work has been reviewed and does show similar findings compared to previous visit just approximately a week ago when patient was seen for similar symptoms of nausea vomiting. His chest x-rays negative. Patient states last 14 hours ago. He'll be discharged home with a tapered dose of Librium along with Zofran also given clonidine for his symptoms. Patient is requesting something for the pain because the cough and congestion. He'll be given Phenergan with codeine. Patient is advised to follow up his family doctor. He is advised to look into rehab facilities. Is advised return if symptoms increase or worsen. - Lab Data Result diagrams: 04/14/17 15:24 04/14/17 15:24 Lab Results 04/14/17 04/14/17 Range/Units 15:24 15:24 WBC 5.2 (3.8-10.6) k/uL RBC 6.07 H (4.30-5.90) m/uL Hgb 18.5 H (13.0-17.5) gm/dL Hct 52.8 (39.0-53.0) % MCV 87.0 (80.0-100.0) fL MCH 30.4 (25.0-35.0) pg MCHC 34.9 (31.0-37.0) g/dL RDW 13.4 (11.5-15.5) % Plt Count 203 (150-450) k/uL Neutrophils % 69 % Lymphocytes % 19 % Monocytes % 8 % Eosinophils % 1 % Basophils % 0 % Neutrophils # 3.6 (1.3-7.7) k/uL Lymphocytes # 1.0 (1.0-4.8) k/uL Monocytes # 0.4 (0-1.0) k/uL Eosinophils # 0.0 (0-0.7) k/uL Basophils # 0.0 (0-0.2) k/uL Sodium 142 (137-145) mmol/L Potassium 3.8 (3.5-5.1) mmol/L Chloride 98 (98-107) mmol/L Carbon Dioxide 25 (22-30) mmol/L Anion Gap 19 mmol/L BUN 18 (9-20) mg/dL Creatinine 0.74 (0.66-1.25) mg/dL Est GFR (MDRD) Af Amer >60 (>60 ml/min/1.73 sqM) Est GFR (MDRD) Non-Af >60 (>60 ml/min/1.73 sqM) Glucose 97 (74-99) mg/dL Calcium 10.4 H (8.4-10.2) mg/dL Total Bilirubin 1.5 H (0.2-1.3) mg/dL AST 82 H (17-59) U/L ALT 84 H (21-72) U/L Alkaline Phosphatase 132 H (38-126) U/L Total Protein 9.2 H (6.3-8.2) g/dL Albumin 5.5 H (3.5-5.0) g/dL Amylase 107 (30-110) U/L Lipase 77 (23-300) U/L Disposition Clinical Impression: Nausea & vomiting, Alcohol withdrawal Disposition: HOME SELF-CARE Condition: Good Instructions: Alcohol Withdrawal (ED) Additional Instructions: Please use medication as discussed. Please follow-up with family doctor in the next 2 days of symptoms have not improved. Please return to emergency room if the symptoms increase or worsen or for any other concerns. Prescriptions: chlordiazePOXIDE HCl [Librium] 25 mg PO DIRECTED #22 capsule cloNIDine HCL [Catapres] 0.1 mg PO BID #6 tab Ondansetron Odt [Zofran ODT] 4 mg PO Q8HR PRN #20 tab PRN Reason: Nausea Avsg-Bfhz-Cir 6.25-5-10Mg/5Ml [Phenergan VC with Codeine] 5 ml PO Q4-6H 5 Days ml Referrals: None,Stated [Primary Care Provider] - 1-2 days Time of Disposition: 16:11
[2017-04-14 15:43] LABS: ALT 84 U/L (21-72); AST 82 U/L (17-59); Albumin 5.5 g/dL (3.5-5.0); Alkaline Phosphatase 132 U/L (38-126); Amylase 107 U/L (30-110); Anion Gap 19 mmol/L; Blood Urea Nitrogen 18 mg/dL (9-20); Calcium 10.4 mg/dL (8.4-10.2); Carbon Dioxide 25 mmol/L (22-30); Chloride 98 mmol/L (98-107); Glucose 97 mg/dL (74-99); Lipase 77 U/L (23-300); Potassium 3.8 mmol/L (3.5-5.1); Sodium 142 mmol/L (137-145); Total Bilirubin 1.5 mg/dL (0.2-1.3); Total Protein 9.2 g/dL (6.3-8.2)
--- NOTE | 2017-04-14 15:46 | XR ---
EXAMINATION TYPE: XR chest 2V DATE OF EXAM: 04/14/2017 COMPARISON: 04/05/2017 HISTORY: Cough TECHNIQUE: Frontal and lateral views of the chest are obtained. FINDINGS: Heart and mediastinum are normal. Lungs are clear. Diaphragm is normal. Bony thorax is int act. IMPRESSION: Normal chest. No change.
[2017-04-14 15:52] LABS: Basophils % (A) 0 %; Eosinophils % (A) 1 %; HCT 52.8 % (39.0-53.0); HGB 18.5 gm/dL (13.0-17.5); Lymphocytes % (A) 19 %; MCH 30.4 pg (25.0-35.0); MCHC 34.9 g/dL (31.0-37.0); Monocytes # (A) 0.4 k/uL (0-1.0); Monocytes % (A) 8 %; Neutrophils # (A) 3.6 k/uL (1.3-7.7); Neutrophils % (A) 69 %; Platelet Count 203 k/uL (150-450); RBC 6.07 m/uL (4.30-5.90); RDW 13.4 % (11.5-15.5); WBC 5.2 k/uL (3.8-10.6)
[2017-04-14 16:20] VITALS: BP 146/78; PULSE 72; RESP 18; TEMP 98.3
== END 2017-04-14 16:25 | disposition home or self-care (01) ==
LOC: EC 14:43
DX: F10.230 Alcohol dependence with withdrawal, uncomplicated (principal); R05 Cough; R09.89 Other specified symptoms and signs involving the circulatory and respiratory systems; F17.200 Nicotine dependence, unspecified, uncomplicated; Z88.6 Allergy status to analgesic agent
CPT/HCPCS: 36415; 80053; 82150; 83690; 85025; 71020; 99284; 96374; 96375; 96376; 96361; J2060; J2405

== ENCOUNTER 2017-05-31 10:45 | Emergency (ER) | payer OTHER ==
[2017-05-31] MEDS ORDERED: KETOROLAC 60 MG/2 ML VIAL IM STA (10:57)
--- NOTE | 2017-05-31 10:59 | ED ---
General Adult HPI - General Chief complaint: Extremity Injury, Lower Stated complaint: Fall / Leg Pain Time Seen by Provider: 05/31/17 10:45 Source: EMS, RN notes reviewed Mode of arrival: EMS Limitations: no limitations - History of Present Illness Initial comments: This is a 31-year-old male who presents emergency Department complaining of left posterior thigh pain. Patient states 2 weeks ago he slipped on some ice and caught himself and since then his hamstring is been hurting him. Patient states he did not follow up at that time. Patient did not see his primary medical care doctor. Patient is able to ambulate since. Patient states his been no area of bruising swelling or redness. Extending his leg does hurt the posterior thigh area. Patient denies any back pain. Patient denies any knee pain or hip pain. - Related Data Home Medications Medication Instructions Recorded Confirmed Ibuprofen [Motrin] 800 mg PO TID PRN 05/31/17 05/31/17 Allergies Allergy/AdvReac Type Severity Reaction Status Date / Time tramadol Allergy HIVES AND Verified 05/31/17 11:09 SEIZURE Review of Systems ROS Statement: Those systems with pertinent positive or pertinent negative responses have been documented in the HPI. ROS Other: All systems not noted in ROS Statement are negative. Past Medical History Past Medical History: Hypertension, Seizure Disorder Additional Past Medical History / Comment(s): Hepatitis C, stomach ulcer, weight loss, ETOH abuse, kidney stones History of Any Multi-Drug Resistant Organisms: None Reported Additional Past Surgical History / Comment(s): lazy eye surgery, right ankle surgery Past Anesthesia/Blood Transfusion Reactions: No Reported Reaction Past Psychological History: Anxiety, Bipolar, Depression, PTSD Smoking Status: Current every day smoker Past Alcohol Use History: Abuse, Daily Past Drug Use History: Marijuana - Past Family History Father Additional Family Medical History / Comment(s): cirrhosis of liver Mother Additional Family Medical History / Comment(s): cirrhosis of liver and heroin overdose General Exam - General Exam Comments Initial Comments: GENERAL Patient is well-developed and well-nourished. Patient is in mild distress. EYES Patient's pupils are equal and round. Extraocular motion is intact SKIN Unremarkable NEURO The patient is alert and oriented 3 PYSCH Patient has normal interpersonal interactions. MUSCULOSKELETAL Patient's left leg has full range of motion at the hip and knee. However extension of the leg seems to cause him some pain in the hamstring area. Patient has no redness swelling or ecchymosis in the hamstring area. However is mildly tender to palpate. Limitations: no limitations Course Vital Signs 05/31/17 05/31/17 10:47 13:52 Temperature 97.1 F L 98.5 F Pulse Rate 111 H 75 Respiratory 20 16 Rate Blood Pressure 159/101 135/70 O2 Sat by Pulse 98 99 Oximetry Medical Decision Making - Medical Decision Making When patient didn't get pain medication he told the nurse he was going to kill himself. Patient's alcohol was done and was 238. Patient was intoxicated and when he sobered up he was reinterviewed the patient no longer is suicidal and wants to go home and states she will be safe. Patient continues to press for pain medicine. Disposition Clinical Impression: Hamstring strain, Alcohol intoxication, Situational depression, Drug-seeking behavior Disposition: HOME SELF-CARE Condition: Good Instructions: Muscle Strain (ED) Additional Instructions: Patient should take Motrin 600 mg by mouth every 6 hours. Referrals: Lisa Meek MD [Primary Care Provider] - 1-2 days Time of Disposition: 10:59
[2017-05-31 13:53] VITALS: TEMP 98.5
[2017-05-31 21:10] VITALS: BP 131/69; PULSE 89; RESP 20
== END 2017-05-31 21:10 | disposition home or self-care (01) ==
LOC: EC 10:45
DX: S76.812A Strain of other specified muscles, fascia and tendons at thigh level, left thigh, initial encounter (principal); F10.129 Alcohol abuse with intoxication, unspecified; F43.21 Adjustment disorder with depressed mood; Z76.5 Malingerer [conscious simulation]; F17.200 Nicotine dependence, unspecified, uncomplicated; Z88.5 Allergy status to narcotic agent; W00.0XXA Fall on same level due to ice and snow, initial encounter
CPT/HCPCS: 82075; 99284; 96372; J1885

== ENCOUNTER 2017-08-05 19:59 | Emergency (ER) | payer OTHER ==
[2017-08-05] MEDS ORDERED: SODIUM CHLORIDE 0.9% 2,000 ML IV STA (20:19)
[2017-08-05] MEDS ORDERED: ONDANSETRON 4 MG/2 ML VIAL IVP STA (20:19)
--- NOTE | 2017-08-05 20:55 | ED ---
General Adult HPI - General Chief complaint: Nausea/Vomiting/Diarrhea Stated complaint: vomiting Time Seen by Provider: 08/05/17 20:13 Source: patient Mode of arrival: wheelchair Limitations: no limitations - History of Present Illness Initial comments: Gregory is a 31 yo male patient presents to the emergency department today for evaluation of 3 days of nausea, vomiting and fatigue. Patient reports that for the past 3 days he has been persistently nauseated, he's been unable to hold down any liquids or solids, he has been attempting to drink water and fruit punch but continues to have episodes of nonbloody nonbilious emesis. Patient reports that he is feeling very fatigued and has began to feel that he is very dehydrated, he feels that his heart is racing and he feels weak. His remaining noted that he had not really gotten out of bed except to vomit for the past 3 days and decided to bring him to the emergency department for evaluation. Patient denies any sick contacts or any known ingestions of food which wouldn't cause food poisoning. He denies any diarrhea or change in bowel habits. Patient reports that he has had episodes of vomiting similar to this in the past with no known cause. He does not follow with gastroenterology have any medications at home for nausea or vomiting. Patient denies any fevers, chills, chest pain, shortness of breath. - Related Data Previous Rx's Medication Instructions Recorded Famotidine [Pepcid] 20 mg PO DAILY #30 tablet 08/06/17 Ondansetron Odt [Zofran Odt] 4 mg PO Q8HR PRN #12 tab 08/06/17 Potassium Chloride ER [K-Dur 10] 10 meq PO DAILY #14 tab 08/06/17 Allergies Allergy/AdvReac Type Severity Reaction Status Date / Time tramadol Allergy HIVES AND Verified 05/31/17 11:09 SEIZURE Review of Systems ROS Statement: Those systems with pertinent positive or pertinent negative responses have been documented in the HPI. ROS Other: All systems not noted in ROS Statement are negative. Respiratory: Denies: cough, dyspnea Cardiovascular: Reports: palpitations. Denies: chest pain Endocrine: Reports: fatigue Gastrointestinal: Reports: nausea, vomiting Genitourinary: Denies: dysuria Musculoskeletal: Denies: back pain Skin: Denies: rash, lesions Neurological: Reports: weakness (generalized). Denies: headache Hematological/Lymphatic: Denies: easy bleeding, easy bruising Past Medical History Past Medical History: Hypertension, Seizure Disorder Additional Past Medical History / Comment(s): Hepatitis C, stomach ulcer, weight loss, ETOH abuse, kidney stones History of Any Multi-Drug Resistant Organisms: None Reported Additional Past Surgical History / Comment(s): lazy eye surgery, right ankle surgery Past Anesthesia/Blood Transfusion Reactions: No Reported Reaction Past Psychological History: Anxiety, Bipolar, Depression, PTSD Smoking Status: Current every day smoker Past Alcohol Use History: Abuse, Daily Past Drug Use History: Marijuana - Past Family History Father Additional Family Medical History / Comment(s): cirrhosis of liver Mother Additional Family Medical History / Comment(s): cirrhosis of liver and heroin overdose General Exam Limitations: no limitations General appearance: alert Head exam: Present: atraumatic, normocephalic Eye exam: Present: normal appearance ENT exam: Present: normal exam Neck exam: Absent: meningismus Respiratory exam: Absent: respiratory distress Cardiovascular Exam: Present: normal rhythm, tachycardia GI/Abdominal exam: Present: soft. Absent: distended Rectal exam: Present: deferred Extremities exam: Present: normal capillary refill. Absent: pedal edema Back exam: Present: normal inspection Neurological exam: Present: alert, oriented X3 Psychiatric exam: Present: normal affect, normal mood Skin exam: Present: warm, dry Course Vital Signs 08/05/17 08/05/17 08/05/17 20:08 21:32 22:42 Temperature 98.7 F Pulse Rate 129 H 123 H 108 H Respiratory 20 20 100 H Rate Blood Pressure 152/95 143/90 143/90 O2 Sat by Pulse 100 100 100 Oximetry 08/05/17 23:47 Temperature 98.8 F Pulse Rate 79 Respiratory 18 Rate Blood Pressure 138/94 O2 Sat by Pulse 98 Oximetry Medical Decision Making - Medical Decision Making Patient seen and evaluated, history obtained from patient and roommate at bedside Patient with 3 days of vomiting, patient appears dehydrated IVF, labs and medications ordered Labs reveal hypokalemia, initially by mouth replacement was ordered however there was concern the patient would not tolerate this and it was decided to replace with IV Patient was updated on findings, patient reports continued discomfort in his abdomen, was updated on finding of hematuria and states that he does have a history of kidney stones in the past. I will plan to computed tomography scan the patient's abdomen for further evaluation. Computed tomography scan with no acute findings, patient has bilateral kidney stones, no stones in the ureters, no [place]. In addition the patient has no acute bowel findings. He does have fatty liver but has a history of alcoholic liver disease which she is aware of. CT results were discussed with the patient, patient reports feeling better after IV fluids, is requesting a 7-Up to drink. Patient does complain of burning epigastric pain, GI cocktail was ordered At this time I discussed with the patient has electrolyte abnormalities and symptoms. Offered to keep the patient in the ED for further IV potassium replacement versus a plan for discharge home with the plan for oral rehydration therapy with a Gatorade or Powerade type drink. Patient is tolerating by mouth intake, his tachycardia has resolved, he is hemodynamically stable. At this time I feel the patient is stable for discharge home with a plan to follow up outpatient with his primary care physician. Patient is agreeable to this plan. I will discharge the patient with Zofran ODT, Pepcid as well as a potassium supplement. Prescriptions were provided and the patient was discharged home in stable condition. - Lab Data Result diagrams: 08/05/17 21:25 08/05/17 21:25 Lab Results 08/05/17 08/05/17 08/05/17 Range/Units 21:25 21:25 21:35 WBC 10.9 H (3.8-10.6) k/uL RBC 4.47 (4.30-5.90) m/uL Hgb 14.6 (13.0-17.5) gm/dL Hct 40.5 (39.0-53.0) % MCV 90.7 (80.0-100.0) fL MCH 32.6 (25.0-35.0) pg MCHC 35.9 (31.0-37.0) g/dL RDW 13.0 (11.5-15.5) % Plt Count 140 L (150-450) k/uL Neutrophils % 84 % Lymphocytes % 9 % Monocytes % 6 % Eosinophils % 1 % Basophils % 0 % Neutrophils # 9.1 H (1.3-7.7) k/uL Lymphocytes # 1.0 (1.0-4.8) k/uL Monocytes # 0.7 (0-1.0) k/uL Eosinophils # 0.1 (0-0.7) k/uL Basophils # 0.0 (0-0.2) k/uL Sodium 146 H (137-145) mmol/L Potassium 2.7 L* (3.5-5.1) mmol/L Chloride 97 L (98-107) mmol/L Carbon Dioxide 26 (22-30) mmol/L Anion Gap 23 mmol/L BUN 39 H (9-20) mg/dL Creatinine 0.60 L (0.66-1.25) mg/dL Est GFR (CKD-EPI)AfAm >90 (>60 ml/min/1.73 sqM) Est GFR (CKD-EPI)NonAf >90 (>60 ml/min/1.73 sqM) Glucose 128 H (74-99) mg/dL Calcium 10.3 H (8.4-10.2) mg/dL Total Bilirubin 1.8 H (0.2-1.3) mg/dL AST 111 H (17-59) U/L ALT 112 H (21-72) U/L Alkaline Phosphatase 131 H (38-126) U/L Total Protein 8.7 H (6.3-8.2) g/dL Albumin 5.2 H (3.5-5.0) g/dL Lipase 383 H (23-300) U/L Urine Color Yellow Urine Appearance Clear (Clear) Urine pH 7.0 (5.0-8.0) Ur Specific [place] 1.021 (1.001-1.035) Urine Protein Trace H (Negative) Urine Glucose (UA) Negative (Negative) Urine Ketones 2+ H (Negative) Urine Blood Large H (Negative) Urine Nitrite Negative (Negative) Urine Bilirubin Negative (Negative) Urine Urobilinogen 2.0 (<2.0) mg/dL Ur Leukocyte Esterase Negative (Negative) Urine RBC 170 H (0-5) /hpf Urine WBC 8 H (0-5) /hpf Urine Mucus Rare H (None) /hpf Disposition Clinical Impression: Dehydration, Nausea and vomiting in adult, Hypokalemia Disposition: HOME SELF-CARE Condition: Good Instructions: Acute Nausea and Vomiting (ED) Prescriptions: Famotidine [Pepcid] 20 mg PO DAILY #30 tablet Ondansetron Odt [Zofran Odt] 4 mg PO Q8HR PRN #12 tab PRN Reason: Nausea Potassium Chloride ER [K-Dur 10] 10 meq PO DAILY #14 tab Is patient prescribed a controlled substance at d/c from ED?: No Referrals: Lisa Meek MD [Primary Care Provider] - 1-2 days Time of Disposition: 00:53
[2017-08-05 21:43] LABS: Basophils % (A) 0 %; Eosinophils # (A) 0.1 k/uL (0-0.7); Eosinophils % (A) 1 %; HCT 40.5 % (39.0-53.0); HGB 14.6 gm/dL (13.0-17.5); Lymphocytes % (A) 9 %; MCH 32.6 pg (25.0-35.0); MCHC 35.9 g/dL (31.0-37.0); MCV 90.7 fL (80.0-100.0); Mean Platelet Volume 9.2; Monocytes # (A) 0.7 k/uL (0-1.0); Monocytes % (A) 6 %; Neutrophils # (A) 9.1 k/uL (1.3-7.7); Neutrophils % (A) 84 %; Platelet Count 140 k/uL (150-450); RBC 4.47 m/uL (4.30-5.90); WBC 10.9 k/uL (3.8-10.6)
[2017-08-05 22:02] LABS: ALT 112 U/L (21-72); AST 111 U/L (17-59); Albumin 5.2 g/dL (3.5-5.0); Alkaline Phosphatase 131 U/L (38-126); Anion Gap 23 mmol/L; Blood Urea Nitrogen 39 mg/dL (9-20); Calcium 10.3 mg/dL (8.4-10.2); Carbon Dioxide 26 mmol/L (22-30); Chloride 97 mmol/L (98-107); Glucose 128 mg/dL (74-99); Lipase 383 U/L (23-300); Sodium 146 mmol/L (137-145); Total Bilirubin 1.8 mg/dL (0.2-1.3); Total Protein 8.7 g/dL (6.3-8.2)
[2017-08-05 22:06] LABS: Potassium 2.7 mmol/L (3.5-5.1)
[2017-08-05 22:09] LABS: Appearance,Urine Clear (Clear); Bilirubin,Urine Negative (Negative); Blood,Urine Large (Negative); Color,Urine Yellow; Glucose,Urine (UA) Negative (Negative); Ketones,Urine 2+ (Negative); Leukocyte Esterase,Urine Negative (Negative); Mucus,Urine Rare /hpf; Nitrite,Urine Negative (Negative); Protein,Urine Trace (Negative); RBC,Urine 170 /hpf (0-5); Specific Gravity,Urine 1.021 (1.001-1.035); WBC,Urine 8 /hpf (0-5)
[2017-08-05] MEDS ORDERED: POTASSIUM CHLORIDE ER 20 MEQ TAB.ER PO STA ×2 (22:13)
[2017-08-05] MEDS ORDERED: RX INFO: IV CONTRAST WAS GIVEN 1 EACH MISC MISCELLANE PRN (22:32)
[2017-08-05] MEDS ORDERED: SODIUM CHLORIDE 0.9% 1,000 ML IV ONE (22:36)
[2017-08-05] MEDS ORDERED: POTASSIUM CHLORIDE 10 MEQ in WATER FOR INJECTION 1 100ML.BAG IVPB STA (23:08)
--- NOTE | 2017-08-05 23:50 | CT ---
EXAMINATION TYPE: CT abdomen pelvis w con DATE OF EXAM: 08/05/2017 COMPARISON: 02/27/2017 HISTORY: Abd pain CT DLP: 372.00 mGycm Automated exposure control for dose reduction was used. TECHNIQUE: Helical acquisition of images was performed from the lung bases through the pelvis. CONTRAST: Performed without Oral Contrast and with IV Contrast, patient injected with 100 mL of Isovue 300. FINDINGS: Lung bases are clear. There is no pleural effusion. Heart size is normal. There is low attenuation th roughout the liver. Bile ducts are not dilated. Spleen appears normal. There is no pancreatic mass. G allbladder is distended. Gallbladder measures 3.2 cm. There is no adrenal mass. Kidneys show satisfactory contrast opacification. There is no hydronephrosi s. There are possible small renal calculi. There is no retroperitoneal adenopathy. I see no intestinal wall thickening. There are no dilated loops. Appendix appears normal. Bladder dis tends smoothly. There is no sign of a pelvic mass. Bony structures are intact. IMPRESSION: FATTY INFILTRATION OF THE LIVER. NONOBSTRUCTING BILATERAL RENAL CALCULI SIMILAR TO OLD EXAM. NO SIGN OF ACUTE ABDOMEN AND PELVIS. THERE IS CLEARING OF THE CALCULUS IN THE MID RIGHT URETER COMPARED TO OL D EXAM.
[2017-08-06] MEDS ORDERED: MAG HYDROX/AL HYDROX/SIMETH 30 ML CUP PO PRN (00:29)
[2017-08-06] MEDS ORDERED: LIDOCAINE VISCOUS 2% 15 ML CUP MUCOUS MEM ONE (00:29)
[2017-08-06] MEDS ORDERED: MAG HYDROX/AL HYDROX/SIMETH 30 ML, HYOSCYAMINE ELIXIR 10 ML, CIMETIDINE HCL 300 MG, LID... PO STA ×4 (00:36)
[2017-08-06 01:06] VITALS: BP 137/72; PULSE 90; RESP 17; TEMP 99.2
== END 2017-08-06 01:29 | disposition home or self-care (01) ==
LOC: EC 19:59
DX: E87.6 Hypokalemia (principal); E86.0 Dehydration; R11.2 Nausea with vomiting, unspecified; N20.0 Calculus of kidney; K76.0 Fatty (change of) liver, not elsewhere classified; F17.200 Nicotine dependence, unspecified, uncomplicated; Z87.19 Personal history of other diseases of the digestive system; Z88.5 Allergy status to narcotic agent
CPT/HCPCS: 36415; 93005; 80053; 83690; 85025; 81001; 74177; 99284; 96365; 96366; 96375; 96361 ×2; J2405; J3480; Q9967

== ENCOUNTER 2017-11-14 20:43 | Emergency (ER) | payer OTHER ==
[2017-11-14 20:50] VITALS: BP 151/95; PULSE 85; RESP 16; TEMP 98.6
--- NOTE | 2017-11-14 21:02 | ED ---
Medical Clearance HPI - General Chief complaint: Medical Clearance Stated complaint: detention clearance Time Seen by Provider: 11/14/17 20:53 Source: patient, police, RN notes reviewed, old records reviewed Mode of arrival: ambulatory - History of Present Illness Initial comments: This is a 32-year-old male brought in by PD for evaluation regarding medical clearance for detention. Patient himself upon arrival has no complaints denies injury denies significant drug or alcohol abuse. MD Complaint: medical clearance requested Home medications: Previous Rx's Medication Instructions Recorded Famotidine [Pepcid] 20 mg PO DAILY #30 tablet 08/06/17 Ondansetron Odt [Zofran Odt] 4 mg PO Q8HR PRN #12 tab 08/06/17 Potassium Chloride ER [K-Dur 10] 10 meq PO DAILY #14 tab 08/06/17 Allergies/Adverse reactions: Allergies Allergy/AdvReac Type Severity Reaction Status Date / Time tramadol Allergy HIVES AND Verified 11/14/17 20:50 SEIZURE Review of Systems ROS Statement: Those systems with pertinent positive or pertinent negative responses have been documented in the HPI. ROS Other: All systems not noted in ROS Statement are negative. Past Medical History Past Medical History: Hypertension, Seizure Disorder Additional Past Medical History / Comment(s): Hepatitis C, stomach ulcer, weight loss, ETOH abuse, kidney stones History of Any Multi-Drug Resistant Organisms: None Reported Additional Past Surgical History / Comment(s): lazy eye surgery, right ankle surgery Past Anesthesia/Blood Transfusion Reactions: No Reported Reaction Past Psychological History: Anxiety, Bipolar, Depression, PTSD Smoking Status: Current every day smoker Past Alcohol Use History: Abuse, Daily Past Drug Use History: Marijuana - Past Family History Father Additional Family Medical History / Comment(s): cirrhosis of liver Mother Additional Family Medical History / Comment(s): cirrhosis of liver and heroin overdose General Exam Limitations: no limitations General appearance: alert, in no apparent distress Head exam: Present: atraumatic, normocephalic, normal inspection Eye exam: Present: normal appearance, PERRL, EOMI. Absent: scleral icterus, conjunctival injection, periorbital swelling ENT exam: Present: normal exam, mucous membranes moist Neck exam: Present: normal inspection. Absent: tenderness, meningismus, lymphadenopathy Respiratory exam: Present: normal lung sounds bilaterally. Absent: respiratory distress, wheezes, rales, rhonchi, stridor Cardiovascular Exam: Present: regular rate, normal rhythm, normal heart sounds. Absent: systolic murmur, diastolic murmur, rubs, gallop, clicks GI/Abdominal exam: Present: soft, normal bowel sounds. Absent: distended, tenderness, guarding, rebound, rigid Extremities exam: Present: normal inspection, full ROM, normal capillary refill. Absent: tenderness, pedal edema, joint swelling, calf tenderness Back exam: Present: normal inspection Neurological exam: Present: alert, oriented X3, CN II-XII intact Psychiatric exam: Present: normal affect, normal mood Skin exam: Present: warm, dry, intact, normal color. Absent: rash Course Vital Signs 11/14/17 20:47 Temperature 98.6 F Pulse Rate 85 Respiratory 16 Rate Blood Pressure 151/95 O2 Sat by Pulse 95 Oximetry - Reevaluation(s) Reevaluation #1: 11/14/17 21:01 Patient well-known to this facility for mental health, prior ER visits are reviewed Medical Decision Making - Medical Decision Making 32 male the ER for evaluation medical clearance for detention. Patient's clear to go to traumatic bleed, vital signs normal and stable patient awake alert and oriented Disposition Clinical Impression: Medical clearance for incarceration Disposition: HOME SELF-CARE Condition: Good Instructions: Medical Clearance for Psychiatric Care (ED) Is patient prescribed a controlled substance at d/c from ED?: No Referrals: Lisa Meek MD [Primary Care Provider] - 1-2 days
== END 2017-11-14 21:07 | disposition home or self-care (01) ==
LOC: EC 20:43
DX: F17.200 Nicotine dependence, unspecified, uncomplicated; Z98.890 Other specified postprocedural states; Z88.5 Allergy status to narcotic agent
CPT/HCPCS: 99282

== ENCOUNTER 2019-12-29 23:19 | Emergency (ER) | payer OTHER ==
--- NOTE | 2019-12-29 23:21 | ED ---
General Adult HPI - General Stated complaint: overdose Time Seen by Provider: 12/29/19 23:20 Source: patient, EMS, RN notes reviewed Mode of arrival: EMS Limitations: no limitations - History of Present Illness Initial comments: This is a 34-year-old male presents emergency department for evaluation after police found him sleeping in his car. Patient was found to have a syringe denies using currently. Patient is awake alert and oriented 4. Vital are stable for EMS. Patient has no thoughts of harming herself. Patient does state that he is pressures up his Xanax and objects into his buccal region. He denies heroin use denies any complaints. He does state that he had an argument with his boyfriend omar states he went to his friend is staying at a hotel and states he went to leave because he is tired but fell sleep in his car.. Patient denies chest pain, shortness breath, abdominal pain, diarrhea constipation. - Related Data Previous Rx's Medication Instructions Recorded Famotidine [Pepcid] 20 mg PO DAILY #30 tablet 08/06/17 Ondansetron Odt [Zofran Odt] 4 mg PO Q8HR PRN #12 tab 08/06/17 Potassium Chloride ER [K-Dur 10] 10 meq PO DAILY #14 tab 08/06/17 Allergies Allergy/AdvReac Type Severity Reaction Status Date / Time tramadol Allergy HIVES AND Verified 11/14/17 21:01 SEIZURE Review of Systems ROS Statement: Those systems with pertinent positive or pertinent negative responses have been documented in the HPI. ROS Other: All systems not noted in ROS Statement are negative. Past Medical History Past Medical History: Hypertension, Seizure Disorder Additional Past Medical History / Comment(s): Hepatitis C, stomach ulcer, weight loss, ETOH abuse, kidney stones History of Any Multi-Drug Resistant Organisms: None Reported Additional Past Surgical History / Comment(s): lazy eye surgery, right ankle surgery Past Anesthesia/Blood Transfusion Reactions: No Reported Reaction Past Psychological History: Anxiety, Bipolar, Depression, PTSD Past Alcohol Use History: Abuse, Daily Past Drug Use History: Marijuana - Past Family History Father Additional Family Medical History / Comment(s): cirrhosis of liver Mother Additional Family Medical History / Comment(s): cirrhosis of liver and heroin overdose General Exam Limitations: no limitations General appearance: alert, in no apparent distress, other (Patient is upset, and no sense distress, awake alert and orientated x 4) Head exam: Present: atraumatic, normocephalic, normal inspection Eye exam: Present: normal appearance, PERRL, EOMI. Absent: scleral icterus, conjunctival injection, periorbital swelling ENT exam: Present: mucous membranes moist. Absent: normal oropharynx (Poor dentition) Neck exam: Present: normal inspection, full ROM. Absent: tenderness, meni ngismus, lymphadenopathy Respiratory exam: Present: normal lung sounds bilaterally. Absent: respiratory distress, wheezes, rales, rhonchi, stridor Cardiovascular Exam: Present: regular rate, normal rhythm, normal heart sounds. Absent: systolic murmur, diastolic murmur, rubs, gallop, clicks Extremities exam: Present: other (Healing wounds noted the left arm) Neurological exam: Present: alert, oriented X3, CN II-XII intact Skin exam: Present: warm, dry, intact, normal color. Absent: rash Medical Decision Making - Medical Decision Making Patient is awake alert and orientated. Patient states he did not use his Xanax that he normally does. Patient states he did have a syringe and was going to use it. Patient has no sign distress. Patient be discharged in stable condition. Return parameters discussed. Disposition Clinical Impression: Fatigue, Drug use Disposition: HOME SELF-CARE Condition: Stable Instructions (If sedation given, give patient instructions): Fatigue (ED) Additional Instructions: Please return to the Emergency Department if symptoms worsen or any other concerns. Is patient prescribed a controlled substance at d/c from ED?: No Referrals: Lisa Meek MD [Primary Care Provider] - 1-2 days Time of Disposition: 23:21
[2019-12-29 23:28] VITALS: BP 105/59; PULSE 77; RESP 18; TEMP 97.8
== END 2019-12-29 23:54 | disposition home or self-care (01) ==
LOC: EC 23:19
DX: R53.83 Other fatigue (principal); F19.90 Other psychoactive substance use, unspecified, uncomplicated; Z88.5 Allergy status to narcotic agent
CPT/HCPCS: 99284

== ENCOUNTER 2020-05-17 23:34 | Emergency (ER) | payer OTHER ==
[2020-05-17 23:41] VITALS: TEMP 98.4
[2020-05-17] MEDS ORDERED: SODIUM CHLORIDE 0.9% 1,000 ML IV STA (23:54)
[2020-05-17] MEDS ORDERED: LORazepam 2 MG/ML INJ IV STA (23:54)
--- NOTE | 2020-05-17 23:58 | ED ---
General Adult HPI - General Chief complaint: ENT Stated complaint: jaw pain Time Seen by Provider: 05/17/20 23:37 Source: patient, EMS, RN notes reviewed Mode of arrival: EMS Limitations: no limitations - History of Present Illness Initial comments: 34-year-old male with a past medical history of hypertension, hepatitis C, alcohol abuse, seizure disorder presents to the emergency room for a chief complaint of jaw pain. Patient states that he quit drinking alcohol today. He normally drinks a half gallon of vodka. Patient states he started to feel shaky and his jaw feels locked up. Patient states he is trying to quit drinking. Patient states he has not had withdrawals from alcohol before and has not tried to quit. Patient has no other complaints at this time including shortness of breath, chest pain, abdominal pain, nausea or vomiting, headache, or visual changes. - Related Data Previous Rx's Medication Instructions Recorded Famotidine [Pepcid] 20 mg PO DAILY #30 tablet 08/06/17 Ondansetron Odt [Zofran Odt] 4 mg PO Q8HR PRN #12 tab 08/06/17 Potassium Chloride ER [K-Dur 10] 10 meq PO DAILY #14 tab 08/06/17 Allergies Allergy/AdvReac Type Severity Reaction Status Date / Time tramadol Allergy HIVES AND Verified 05/17/20 23:41 SEIZURE Review of Systems ROS Statement: Those systems with pertinent positive or pertinent negative responses have been documented in the HPI. ROS Other: All systems not noted in ROS Statement are negative. Past Medical History Past Medical History: Hypertension, Seizure Disorder Additional Past Medical History / Comment(s): Hepatitis C, stomach ulcer, weight loss, ETOH abuse, kidney stones History of Any Multi-Drug Resistant Organisms: None Reported Additional Past Surgical History / Comment(s): lazy eye surgery, right ankle surgery Past Anesthesia/Blood Transfusion Reactions: No Reported Reaction Past Psychological History: Anxiety, Bipolar, Depression, PTSD Smoking Status: Current some day smoker Past Alcohol Use History: Abuse, Daily Past Drug Use History: Marijuana - Past Family History Father Additional Family Medical History / Comment(s): cirrhosis of liver Mother Additional Family Medical History / Comment(s): cirrhosis of liver and heroin overdose General Exam Limitations: no limitations General appearance: alert, anxious Head exam: Present: atraumatic Eye exam: Present: normal appearance, PERRL, EOMI. Absent: scleral icterus, conjunctival injection ENT exam: Present: normal exam, normal oropharynx (Patient able to open mandible but does have some pain in the left TMJ.), mucous membranes moist Neck exam: Present: normal inspection, full ROM. Absent: tenderness Respiratory exam: Present: normal lung sounds bilaterally. Absent: respiratory distress, wheezes Cardiovascular Exam: Present: regular rate, normal rhythm, normal heart sounds GI/Abdominal exam: Present: soft, normal bowel sounds. Absent: distended, tenderness Neurological exam: Present: alert Psychiatric exam: Present: anxious Course Vital Signs 05/17/20 05/18/20 05/18/20 23:36 00:58 01:00 Temperature 98.4 F Pulse Rate 103 H 90 80 Respiratory 18 16 16 Rate Blood Pressure 176/120 150/108 145/94 O2 Sat by Pulse 96 98 98 Oximetry Medical Decision Making - Medical Decision Making Vitals are stable. Patient initially hypertensive but was very anxious. CBC CMP unremarkable. Alcohol is negative. Mandible x-rays negative. He is reevaluated after Ativan, resting comfortably, easily arousable. At this time patient discharged home. He will get a ride home as we did give him Ativan. He will return here for any worsening symptoms and will otherwise follow up with his doctor. Case discussed with Dr Loving. - Lab Data Result diagrams: 05/18/20 00:10 05/18/20 00:10 Lab Results 05/18/20 05/18/20 Range/Units 00:10 00:10 WBC 9.9 (3.8-10.6) k/uL RBC 5.55 (4.30-5.90) m/uL Hgb 15.9 (13.0-17.5) gm/dL Hct 46.1 (39.0-53.0) % MCV 83.1 (80.0-100.0) fL MCH 28.6 (25.0-35.0) pg MCHC 34.5 (31.0-37.0) g/dL RDW 16.1 H (11.5-15.5) % Plt Count 221 (150-450) k/uL MPV 7.2 Neutrophils % 66 % Lymphocytes % 25 % Monocytes % 5 % Eosinophils % 1 % Basophils % 0 % Neutrophils # 6.6 (1.3-7.7) k/uL Lymphocytes # 2.5 (1.0-4.8) k/uL Monocytes # 0.5 (0-1.0) k/uL Eosinophils # 0.1 (0-0.7) k/uL Basophils # 0.0 (0-0.2) k/uL Anisocytosis Slight Sodium 141 (137-145) mmol/L Potassium 4.2 (3.5-5.1) mmol/L Chloride 102 (98-107) mmol/L Carbon Dioxide 27 (22-30) mmol/L Anion Gap 12 mmol/L BUN 16 (9-20) mg/dL Creatinine 0.98 (0.66-1.25) mg/dL Est GFR (CKD-EPI)AfAm >90 (>60 ml/min/1.73 sqM) Est GFR (CKD-EPI)NonAf >90 (>60 ml/min/1.73 sqM) Glucose 98 (74-99) mg/dL Calcium 10.3 H (8.4-10.2) mg/dL Magnesium 1.7 (1.6-2.3) mg/dL Total Bilirubin 0.5 (0.2-1.3) mg/dL AST 54 (17-59) U/L ALT 83 H (4-49) U/L Alkaline Phosphatase 132 H (38-126) U/L Total Protein 8.7 H (6.3-8.2) g/dL Albumin 5.1 H (3.5-5.0) g/dL Serum Alcohol <10 mg/dL Disposition Clinical Impression: Alcohol withdrawal Disposition: HOME SELF-CARE Condition: Good Instructions (If sedation given, give patient instructions): Alcohol Withdrawal (ED) Additional Instructions: Please follow up with primary care in 1-2 days. Return to the emergency room for any worsening symptoms. Is patient prescribed a controlled substance at d/c from ED?: No Referrals: Lisa Meek MD [Primary Care Provider] - 1-2 days Time of Disposition: 01:26
[2020-05-18 00:29] LABS: ALT 83 U/L (4-49); AST 54 U/L (17-59); African American GFR (CKD) >90 (>60 ml/min/1.73 sqM); Albumin 5.1 g/dL (3.5-5.0); Alcohol <10 mg/dL; Alkaline Phosphatase 132 U/L (38-126); Anion Gap 12 mmol/L; Blood Urea Nitrogen 16 mg/dL (9-20); Calcium 10.3 mg/dL (8.4-10.2); Carbon Dioxide 27 mmol/L (22-30); Chloride 102 mmol/L (98-107); Glucose 98 mg/dL (74-99); Magnesium 1.7 mg/dL (1.6-2.3); Non-African American GFR(CKD) >90 (>60 ml/min/1.73 sqM); Potassium 4.2 mmol/L (3.5-5.1); Sodium 141 mmol/L (137-145); Total Bilirubin 0.5 mg/dL (0.2-1.3); Total Protein 8.7 g/dL (6.3-8.2)
[2020-05-18] MEDS ORDERED: KETOROLAC 15 MG/ML 1 ML VIAL IVP STA (00:44)
[2020-05-18 00:46] LABS: Anisocytosis Slight; Basophils % (A) 0 %; Eosinophils # (A) 0.1 k/uL (0-0.7); Eosinophils % (A) 1 %; HCT 46.1 % (39.0-53.0); HGB 15.9 gm/dL (13.0-17.5); Lymphocytes # (A) 2.5 k/uL (1.0-4.8); Lymphocytes % (A) 25 %; MCH 28.6 pg (25.0-35.0); MCHC 34.5 g/dL (31.0-37.0); MCV 83.1 fL (80.0-100.0); Mean Platelet Volume 7.2; Monocytes # (A) 0.5 k/uL (0-1.0); Monocytes % (A) 5 %; Neutrophils # (A) 6.6 k/uL (1.3-7.7); Neutrophils % (A) 66 %; Platelet Count 221 k/uL (150-450); RBC 5.55 m/uL (4.30-5.90); RDW 16.1 % (11.5-15.5); WBC 9.9 k/uL (3.8-10.6)
--- NOTE | 2020-05-18 01:02 | XR ---
EXAM: XR Mandible Complete, 4 or More Views CLINICAL HISTORY: ITS.REASON XR Reason: pain TECHNIQUE: Frontal, oblique and lateral views of the mandible. COMPARISON: No relevant prior studies available. FINDINGS: Dental: The patient is edentulous. Bones/joints: Unremarkable. No acute fracture. No dislocation. Soft tissues: Unremarkable. IMPRESSION: No acute findings in the mandible.
[2020-05-18 01:35] VITALS: BP 150/101; PULSE 99; RESP 18
== END 2020-05-18 01:35 | disposition home or self-care (01) ==
LOC: EC 23:34
DX: F10.239 Alcohol dependence with withdrawal, unspecified (principal); R68.84 Jaw pain; F17.200 Nicotine dependence, unspecified, uncomplicated; Z88.6 Allergy status to analgesic agent; Y90.0 Blood alcohol level of less than 20 mg/100 ml
CPT/HCPCS: 36415; 80053; 83735; 85025; 70110; 99284; 96374; 96375; 96361; G0480; J2060; J1885; 80320

== ENCOUNTER 2020-06-21 18:32 | Emergency (ER) | payer OTHER ==
[2020-06-21] MEDS ORDERED: SODIUM CHLORIDE 0.9% 1,000 ML IV ONE (18:42)
[2020-06-21 18:43] VITALS: BP 97/61; PULSE 72; TEMP 97.8
[2020-06-21] MEDS ORDERED: NALOXONE 0.4 MG/ML 1 ML VIAL IVP STA (18:43)
[2020-06-21 18:44] VITALS: RESP 13
--- NOTE | 2020-06-21 18:50 | ED ---
General Adult HPI - General Chief complaint: Overdose Stated complaint: overdose Time Seen by Provider: 06/21/20 18:39 Source: patient, RN notes reviewed, old records reviewed Mode of arrival: EMS Limitations: altered mental status - History of Present Illness Initial comments: 35-year-old male presents with suspected overdose. It was reported to EMS that the patient took 30 mg of IV morphine. He is known to have polysubstance abuse. He was transported by EMS, maintaining his airway with normal oxygenation. Patient did not report any suicidal ideation although he was only answering very minimal questions. History is limited by altered mental status. - Related Data Previous Rx's Medication Instructions Recorded Famotidine [Pepcid] 20 mg PO DAILY #30 tablet 08/06/17 Ondansetron Odt [Zofran Odt] 4 mg PO Q8HR PRN #12 tab 08/06/17 Potassium Chloride ER [K-Dur 10] 10 meq PO DAILY #14 tab 08/06/17 Allergies Allergy/AdvReac Type Severity Reaction Status Date / Time tramadol Allergy HIVES AND Verified 06/21/20 18:43 SEIZURE Review of Systems ROS Statement: Those systems with pertinent positive or pertinent negative responses have been documented in the HPI. ROS Other: All systems not noted in ROS Statement are negative. Past Medical History Past Medical History: Hypertension, Seizure Disorder Additional Past Medical History / Comment(s): Hepatitis C, stomach ulcer, weight loss, ETOH abuse, kidney stones History of Any Multi-Drug Resistant Organisms: None Reported Additional Past Surgical History / Comment(s): lazy eye surgery, right ankle surgery Past Anesthesia/Blood Transfusion Reactions: No Reported Reaction Past Psychological History: Anxiety, Bipolar, Depression, PTSD Smoking Status: Current some day smoker Past Alcohol Use History: Abuse, Daily Past Drug Use History: Marijuana - Past Family History Father Additional Family Medical History / Comment(s): cirrhosis of liver Mother Additional Family Medical History / Comment(s): cirrhosis of liver and heroin overdose General Exam Limitations: no limitations General appearance: lethargic Head exam: Present: atraumatic, normocephalic Eye exam: Present: PERRL ENT exam: Present: normal exam Neck exam: Present: normal inspection. Absent: tenderness, meningismus Respiratory exam: Present: normal lung sounds bilaterally. Absent: respiratory distress, wheezes Cardiovascular Exam: Present: regular rate, normal rhythm GI/Abdominal exam: Present: soft. Absent: distended, tenderness, guarding Extremities exam: Present: normal inspection, normal capillary refill Neurological exam: Present: alert, CN II-XII intact. Absent: motor sensory deficit Psychiatric exam: Present: depressed, flat affect Skin exam: Present: warm, dry, intact. Absent: cyanosis, diaphoretic Course Vital Signs 06/21/20 06/21/20 18:38 18:44 Temperature 97.8 F Pulse Rate 72 Respiratory 16 13 Rate Blood Pressure 97/61 O2 Sat by Pulse 96 Oximetry Medical Decision Making - Medical Decision Making 34-year-old male with accidental overuse of an opiate. Patient admits to using 30 mg of morphine which she obtained illegally. He injected this medication. He was still able to answer some simple questions but was very lethargic upon arrival. He was given 0.4 mg of Narcan. He states that this was not suicidal this was accidental. He is observed for approximately 90 minutes in the emergency department. He remains awake and alert. He is able to make his own decisions and asked to be discharged. - Lab Data Result diagrams: 06/21/20 18:50 06/21/20 18:50 Lab Results 06/21/20 06/21/20 Range/Units 18:50 18:50 WBC 8.8 (3.8-10.6) k/uL RBC 4.82 (4.30-5.90) m/uL Hgb 13.8 (13.0-17.5) gm/dL Hct 40.5 (39.0-53.0) % MCV 84.1 (80.0-100.0) fL MCH 28.6 (25.0-35.0) pg MCHC 34.1 (31.0-37.0) g/dL RDW 14.1 (11.5-15.5) % Plt Count 329 (150-450) k/uL MPV 6.9 Neutrophils % 59 % Lymphocytes % 33 % Monocytes % 4 % Eosinophils % 1 % Basophils % 1 % Neutrophils # 5.2 (1.3-7.7) k/uL Lymphocytes # 2.9 (1.0-4.8) k/uL Monocytes # 0.4 (0-1.0) k/uL Eosinophils # 0.1 (0-0.7) k/uL Basophils # 0.0 (0-0.2) k/uL Sodium 141 (137-145) mmol/L Potassium 4.2 (3.5-5.1) mmol/L Chloride 110 H (98-107) mmol/L Carbon Dioxide 21 L (22-30) mmol/L Anion Gap 10 mmol/L BUN 13 (9-20) mg/dL Creatinine 1.09 (0.66-1.25) mg/dL Est GFR (CKD-EPI)AfAm >90 (>60 ml/min/1.73 sqM) Est GFR (CKD-EPI)NonAf 89 (>60 ml/min/1.73 sqM) Glucose 106 H (74-99) mg/dL Calcium 9.3 (8.4-10.2) mg/dL Total Bilirubin 0.4 (0.2-1.3) mg/dL AST 19 (17-59) U/L ALT 16 (4-49) U/L Alkaline Phosphatase 84 (38-126) U/L Total Protein 7.5 (6.3-8.2) g/dL Albumin 4.2 (3.5-5.0) g/dL Serum Alcohol <10 mg/dL Disposition Clinical Impression: Drug overdose, Poisoning by opiates and related narcotics, other Disposition: HOME SELF-CARE Condition: Fair Instructions (If sedation given, give patient instructions): Adult Overdose (ED), Opioid Safety (ED), Narcotic Use Disorder (ED) Is patient prescribed a controlled substance at d/c from ED?: No Referrals: Lisa Meek MD [Primary Care Provider] - 1-2 days Time of Disposition: 20:30
[2020-06-21 19:04] LABS: Basophils % (A) 1 %; Eosinophils # (A) 0.1 k/uL (0-0.7); Eosinophils % (A) 1 %; HCT 40.5 % (39.0-53.0); HGB 13.8 gm/dL (13.0-17.5); Lymphocytes # (A) 2.9 k/uL (1.0-4.8); Lymphocytes % (A) 33 %; MCH 28.6 pg (25.0-35.0); MCHC 34.1 g/dL (31.0-37.0); MCV 84.1 fL (80.0-100.0); Mean Platelet Volume 6.9; Monocytes # (A) 0.4 k/uL (0-1.0); Monocytes % (A) 4 %; Neutrophils # (A) 5.2 k/uL (1.3-7.7); Neutrophils % (A) 59 %; Platelet Count 329 k/uL (150-450); RBC 4.82 m/uL (4.30-5.90); RDW 14.1 % (11.5-15.5); WBC 8.8 k/uL (3.8-10.6)
[2020-06-21 19:22] LABS: ALT 16 U/L (4-49); AST 19 U/L (17-59); African American GFR (CKD) >90 (>60 ml/min/1.73 sqM); Albumin 4.2 g/dL (3.5-5.0); Alcohol <10 mg/dL; Alkaline Phosphatase 84 U/L (38-126); Anion Gap 10 mmol/L; Blood Urea Nitrogen 13 mg/dL (9-20); Calcium 9.3 mg/dL (8.4-10.2); Carbon Dioxide 21 mmol/L (22-30); Chloride 110 mmol/L (98-107); Glucose 106 mg/dL (74-99); Non-African American GFR(CKD) 89 (>60 ml/min/1.73 sqM); Potassium 4.2 mmol/L (3.5-5.1); Sodium 141 mmol/L (137-145); Total Bilirubin 0.4 mg/dL (0.2-1.3); Total Protein 7.5 g/dL (6.3-8.2)
== END 2020-06-21 20:20 | disposition home or self-care (01) ==
LOC: EC 18:32
DX: T40.2X1A Poisoning by other opioids, accidental (unintentional), initial encounter (principal); F17.200 Nicotine dependence, unspecified, uncomplicated; F41.9 Anxiety disorder, unspecified; F32.9 Major depressive disorder, single episode, unspecified; F43.10 Post-traumatic stress disorder, unspecified; I10 Essential (primary) hypertension; G40.909 Epilepsy, unspecified, not intractable, without status epilepticus; Z88.5 Allergy status to narcotic agent; Z88.8 Allergy status to other drugs, medicaments and biological substances
CPT/HCPCS: 36415; 80053; 85025; 99284; 96374; 96361; G0480; J2310; 80320

== ENCOUNTER 2020-10-10 18:20 | Emergency (ER) | payer OTHER ==
[2020-10-10 18:24] VITALS: TEMP 98.3
[2020-10-10] MEDS ORDERED: PANTOPRAZOLE 40 MG/10 ML VIAL IVP STA (18:31)
[2020-10-10] MEDS ORDERED: ONDANSETRON 4 MG/2 ML VIAL IVP STA (18:31)
[2020-10-10] MEDS ORDERED: SODIUM CHLORIDE 0.9% 500 ML 500 ML IV STA (18:31)
[2020-10-10 18:58] LABS: Basophils % (A) 0 %; Eosinophils # (A) 0.3 k/uL (0-0.7); Eosinophils % (A) 4 %; HCT 41.8 % (39.0-53.0); HGB 14.7 gm/dL (13.0-17.5); Lymphocytes # (A) 2.4 k/uL (1.0-4.8); Lymphocytes % (A) 30 %; MCH 28.9 pg (25.0-35.0); MCV 82.6 fL (80.0-100.0); Mean Platelet Volume 6.8; Monocytes # (A) 0.5 k/uL (0-1.0); Monocytes % (A) 6 %; Neutrophils # (A) 4.6 k/uL (1.3-7.7); Neutrophils % (A) 58 %; Platelet Count 188 k/uL (150-450); RBC 5.06 m/uL (4.30-5.90); RDW 15.6 % (11.5-15.5)
--- NOTE | 2020-10-10 19:01 | ED ---
General Adult HPI - General Chief complaint: Abdominal Pain Stated complaint: Abd pain/blood in stool/vomiting Time Seen by Provider: 10/10/20 18:24 Source: patient, RN notes reviewed, old records reviewed Mode of arrival: ambulatory Limitations: no limitations - History of Present Illness Initial comments: 35-year-old male with history of hepatitis C presenting with right upper quadrant pain for the past several weeks. Patient is currently incarcerated. He's been in halfway for 30 days. No reported fever. He has had some diarrhea. Previous history of both alcohol abuse and illicit drugs. - Related Data Previous Rx's Medication Instructions Recorded Famotidine [Pepcid] 20 mg PO DAILY #30 tablet 08/06/17 Ondansetron Odt [Zofran Odt] 4 mg PO Q8HR PRN #12 tab 08/06/17 Potassium Chloride ER [K-Dur 10] 10 meq PO DAILY #14 tab 08/06/17 Omeprazole [PriLOSEC] 20 mg PO AC-BID #60 cap 10/10/20 Allergies Allergy/AdvReac Type Severity Reaction Status Date / Time tramadol Allergy HIVES AND Verified 10/10/20 18:24 SEIZURE Review of Systems ROS Statement: Those systems with pertinent positive or pertinent negative responses have been documented in the HPI. ROS Other: All systems not noted in ROS Statement are negative. Past Medical History Past Medical History: Hypertension, Seizure Disorder Additional Past Medical History / Comment(s): Hepatitis C, stomach ulcer, weight loss, ETOH abuse, kidney stones History of Any Multi-Drug Resistant Organisms: None Reported Additional Past Surgical History / Comment(s): lazy eye surgery, right ankle surgery Past Anesthesia/Blood Transfusion Reactions: No Reported Reaction Past Psychological History: Anxiety, Bipolar, Depression, PTSD Smoking Status: Current some day smoker Past Alcohol Use History: Abuse, Daily Past Drug Use History: Marijuana, Prescription Drug Abuse - Past Family History Father Additional Family Medical History / Comment(s): cirrhosis of liver Mother Additional Family Medical History / Comment(s): cirrhosis of liver and heroin overdose General Exam Limitations: no limitations General appearance: alert, in no apparent distress Head exam: Present: atraumatic, normocephalic Eye exam: Present: normal appearance, PERRL ENT exam: Present: normal exam Neck exam: Present: normal inspection. Absent: tenderness, meningismus Respiratory exam: Present: normal lung sounds bilaterally. Absent: respiratory distress, wheezes Cardiovascular Exam: Present: regular rate, normal rhythm GI/Abdominal exam: Present: soft, tenderness (Right upper quadrant). Absent: distended, guarding, rebound Extremities exam: Present: normal inspection, normal capillary refill. Absent: pedal edema, calf tenderness Neurological exam: Present: alert, oriented X3, CN II-XII intact. Absent: motor sensory deficit Psychiatric exam: Present: normal affect, normal mood Skin exam: Present: warm, dry, intact. Absent: cyanosis, diaphoretic Course Vital Signs 10/10/20 18:21 Temperature 98.3 F Pulse Rate 98 Respiratory 16 Rate Blood Pressure 137/93 O2 Sat by Pulse 98 Oximetry Medical Decision Making - Medical Decision Making 35-year-old male with several weeks of abdominal discomfort diarrhea. He has pain in the right upper quadrant. Ultrasound performed which is negative for signs of acute cholecystitis, normal gallbladder. He did have a positive Díaz's been no other secondary signs of infection or distention within the gallbladder. He has normal CBC, normal CMP. No leukocytosis, stable hemoglobin. He will be prescribed omeprazole which she will take. He will follow with his primary care physician regarding these ongoing symptoms. - Lab Data Result diagrams: 10/10/20 18:52 10/10/20 18:52 Lab Results 10/10/20 10/10/20 10/10/20 Range/Units 18:52 18:52 18:52 WBC 8.0 (3.8-10.6) k/uL RBC 5.06 (4.30-5.90) m/uL Hgb 14.7 (13.0-17.5) gm/dL Hct 41.8 (39.0-53.0) % MCV 82.6 (80.0-100.0) fL MCH 28.9 (25.0-35.0) pg MCHC 35.0 (31.0-37.0) g/dL RDW 15.6 H (11.5-15.5) % Plt Count 188 (150-450) k/uL MPV 6.8 Neutrophils % 58 % Lymphocytes % 30 % Monocytes % 6 % Eosinophils % 4 % Basophils % 0 % Neutrophils # 4.6 (1.3-7.7) k/uL Lymphocytes # 2.4 (1.0-4.8) k/uL Monocytes # 0.5 (0-1.0) k/uL Eosinophils # 0.3 (0-0.7) k/uL Basophils # 0.0 (0-0.2) k/uL PT 11.2 (9.0-12.0) sec INR 1.1 (<1.2) APTT 26.6 (22.0-30.0) sec Sodium 142 (137-145) mmol/L Potassium 4.0 (3.5-5.1) mmol/L Chloride 107 (98-107) mmol/L Carbon Dioxide 25 (22-30) mmol/L Anion Gap 10 mmol/L BUN 17 (9-20) mg/dL Creatinine 0.79 (0.66-1.25) mg/dL Est GFR (CKD-EPI)AfAm >90 (>60 ml/min/1.73 sqM) Est GFR (CKD-EPI)NonAf >90 (>60 ml/min/1.73 sqM) Glucose 148 H (74-99) mg/dL Calcium 9.1 (8.4-10.2) mg/dL Total Bilirubin 0.2 (0.2-1.3) mg/dL AST 40 (17-59) U/L ALT 58 H (4-49) U/L Alkaline Phosphatase 119 (38-126) U/L Total Protein 7.2 (6.3-8.2) g/dL Albumin 4.4 (3.5-5.0) g/dL Amylase 82 (30-110) U/L Lipase 110 (23-300) U/L Disposition Clinical Impression: Abdominal pain Disposition: HOME SELF-CARE Condition: Good Instructions (If sedation given, give patient instructions): Abdominal Pain (ED) Prescriptions: Omeprazole [PriLOSEC] 20 mg PO AC-BID #60 cap Is patient prescribed a controlled substance at d/c from ED?: No Referrals: Lisa Meek MD [Primary Care Provider] - 1-2 days Time of Disposition: 20:01
[2020-10-10 19:21] LABS: ALT 58 U/L (4-49); AST 40 U/L (17-59); African American GFR (CKD) >90 (>60 ml/min/1.73 sqM); Albumin 4.4 g/dL (3.5-5.0); Alkaline Phosphatase 119 U/L (38-126); Amylase 82 U/L (30-110); Anion Gap 10 mmol/L; Blood Urea Nitrogen 17 mg/dL (9-20); Calcium 9.1 mg/dL (8.4-10.2); Carbon Dioxide 25 mmol/L (22-30); Chloride 107 mmol/L (98-107); Glucose 148 mg/dL (74-99); Lipase 110 U/L (23-300); Non-African American GFR(CKD) >90 (>60 ml/min/1.73 sqM); Sodium 142 mmol/L (137-145); Total Bilirubin 0.2 mg/dL (0.2-1.3); Total Protein 7.2 g/dL (6.3-8.2)
[2020-10-10 19:30] LABS: INR 1.1 (<1.2); Partial Thromboplastin Time 26.6 sec (22.0-30.0); Prothrombin Time 11.2 sec (9.0-12.0)
--- NOTE | 2020-10-10 19:50 | US ---
EXAMINATION TYPE: US gallbladder DATE OF EXAM: 10/10/2020 COMPARISON: NONE CLINICAL HISTORY: ruq pain. pain, N/V on and off for a few years EXAM MEASUREMENTS: Liver Length: 17.0 cm Gallbladder Wall: 0.2 cm CBD: 0.5 cm Right Kidney: 10.7 x 4.2 x 4.4 cm Pancreas: wnl Liver: wnl Gallbladder: slightly contracted 3.5hrs NPO Evidence for sonographic Díaz's sign: yes CBD: wnl Right Kidney: wnl IMPRESSION: No gallstones or dilated ducts. Negative exam.
--- NOTE | 2020-10-10 20:31 | XR ---
EXAMINATION TYPE: XR KUB DATE OF EXAM: 10/10/2020 COMPARISON: 03/27/2017 HISTORY: Nausea and vomiting TECHNIQUE: 2 views upright FINDINGS: Bowel gas pattern is normal. There is no sign of intestinal obstruction or pneumoperitoneum . Fecal pattern is normal. There are no pathologic calcifications over the kidneys. Lung bases are cl ear. I see no evidence of a mass. IMPRESSION: Nonacute abdomen. No adverse change.
[2020-10-10 20:57] VITALS: BP 113/73; PULSE 78; RESP 18
== END 2020-10-10 20:57 | disposition home or self-care (01) ==
LOC: EC 18:20
DX: R10.11 Right upper quadrant pain (principal); R19.7 Diarrhea, unspecified; K92.1 Melena; R11.2 Nausea with vomiting, unspecified; I10 Essential (primary) hypertension; G40.909 Epilepsy, unspecified, not intractable, without status epilepticus; F31.9 Bipolar disorder, unspecified; F17.200 Nicotine dependence, unspecified, uncomplicated; F12.90 Cannabis use, unspecified, uncomplicated; Z86.19 Personal history of other infectious and parasitic diseases; Z87.442 Personal history of urinary calculi; Z88.5 Allergy status to narcotic agent; Z88.8 Allergy status to other drugs, medicaments and biological substances
CPT/HCPCS: 36415; 80053; 82150; 83690; 85025; 85610; 85730; 74018; 76705; 99284; 96374; 96375; 96361; J2405; C9113

== ENCOUNTER 2021-03-17 00:47 | Emergency (ER) | payer OTHER ==
[2021-03-17] MEDS ORDERED: TOPICAL SKIN ADHESIVE 1 EACH AMP TOPICAL ONE (01:46)
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
[2021-03-17] MEDS ORDERED: CEPHALEXIN 500 MG CAP PO STA (03:13)
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
[2021-03-17] MEDS ORDERED: CEPHALEXIN 500MG STARTER PACK 4 CAP BTL PO STA (03:14)
[2021-03-17 03:28] VITALS: BP 140/90; PULSE 86; RESP 18; TEMP 98.1
== END 2021-03-17 03:26 | disposition other institution (70) ==
LOC: EC 00:47
DX: S02.2XXA Fracture of nasal bones, initial encounter for closed fracture (principal); I10 Essential (primary) hypertension; G40.909 Epilepsy, unspecified, not intractable, without status epilepticus; F17.200 Nicotine dependence, unspecified, uncomplicated; F12.90 Cannabis use, unspecified, uncomplicated; Y04.0XXA Assault by unarmed brawl or fight, initial encounter; Y92.149 Unspecified place in prison as the place of occurrence of the external cause
CPT/HCPCS: 70486; 99284; 99285

== ENCOUNTER 2021-11-22 17:32 | Observation (INO) | payer OTHER ==
[2021-11-22] MEDS ORDERED: LORazepam 2 MG/ML INJ IV STA ×2 (20:59→23:10)
[2021-11-22] MEDS ORDERED: SODIUM CHLORIDE 0.9% 1,000 ML IV STA ×2 (20:59)
[2021-11-22] MEDS ORDERED: ONDANSETRON 4 MG/2 ML VIAL IVP STA (21:00)
[2021-11-22 21:48] LABS: Basophils % (A) 0 %; Eosinophils # (A) 0.1 k/uL (0-0.7); Eosinophils % (A) 1 %; HCT 42.7 % (39.0-53.0); HGB 14.1 gm/dL (13.0-17.5); Lymphocytes # (A) 2.8 k/uL (1.0-4.8); Lymphocytes % (A) 35 %; MCH 26.5 pg (25.0-35.0); MCV 80.3 fL (80.0-100.0); Mean Platelet Volume 7.4; Monocytes # (A) 0.4 k/uL (0-1.0); Monocytes % (A) 5 %; Neutrophils # (A) 4.6 k/uL (1.3-7.7); Neutrophils % (A) 57 %; Platelet Count 243 k/uL (150-450); RBC 5.32 m/uL (4.30-5.90)
[2021-11-22 22:00] LABS: ALT 36 U/L (4-49); AST 32 U/L (17-59); African American GFR (CKD) >90 (>60 ml/min/1.73 sqM); Albumin 4.9 g/dL (3.5-5.0); Alcohol <10 mg/dL; Alkaline Phosphatase 108 U/L (38-126); Anion Gap 14 mmol/L; Blood Urea Nitrogen 16 mg/dL (9-20); Calcium 9.4 mg/dL (8.4-10.2); Carbon Dioxide 19 mmol/L (22-30); Chloride 106 mmol/L (98-107); Glucose 89 mg/dL (74-99); Lipase 104 U/L (23-300); Non-African American GFR(CKD) >90 (>60 ml/min/1.73 sqM); Potassium 4.3 mmol/L (3.5-5.1); Sodium 139 mmol/L (137-145); Total Bilirubin 0.3 mg/dL (0.2-1.3); Total Protein 8.7 g/dL (6.3-8.2)
--- NOTE | 2021-11-23 00:16 | ED ---
Alcohol HPI - General Chief Complaint: Alcohol Stated Complaint: Alcohol withdrawal Time Seen by Provider: 11/22/21 20:19 Source: patient Mode of arrival: ambulatory Limitations: no limitations - History of Present Illness Initial Comments: This 36-year-old male presents with a complaint of alcohol withdrawal. He states that he stopped drinking at 3 AM today. He states that he normally will go through fairly severe withdrawals. He is feeling very shaky, nauseated, has some slight abdominal pain, and is anxious. He states that he has had alcohol withdrawal seizures and delirium tremens in the past. He states that he would like help with his alcohol abuse. He normally drinks approximately 2/5 of alcohol per day. He states that he cannot afford to buy any more alcohol. He also is worried about the effects on his body. He states that he is ready for rehabilitation and has it scheduled for next Sunday but cannot make it that long. - Related Data Home Medications Medication Instructions Recorded Confirmed No Known Home Medications 11/22/21 11/22/21 Allergies Allergy/AdvReac Type Severity Reaction Status Date / Time tramadol Allergy Hives & Verified 11/22/21 22:52 Causes Seizures Review of Systems ROS Statement: Those systems with pertinent positive or pertinent negative responses have been documented in the HPI. ROS Other: All systems not noted in ROS Statement are negative. Past Medical History Past Medical History: Hypertension, Seizure Disorder Additional Past Medical History / Comment(s): Hepatitis C, stomach ulcer, weight loss, ETOH abuse, kidney stones History of Any Multi-Drug Resistant Organisms: None Reported Additional Past Surgical History / Comment(s): lazy eye surgery, right ankle surgery Past Anesthesia/Blood Transfusion Reactions: No Reported Reaction Past Psychological History: Anxiety, Bipolar, Depression, PTSD Smoking Status: Current some day smoker Past Alcohol Use History: Abuse, Daily Past Drug Use History: Marijuana, Prescription Drug Abuse - Past Family History Father Additional Family Medical History / Comment(s): cirrhosis of liver Mother Additional Family Medical History / Comment(s): cirrhosis of liver and heroin overdose General Exam - General Exam Comments Initial Comments: GENERAL: The patient is well nourished and well hydrated. VITAL SIGNS: Heart rate, blood pressure, respiratory rate reviewed as recorded in nurse's notes. EYES: Pupils are round and reactive. Extraocular movements are intact. No conjunctival / lid redness or swelling. ENT: No external evidence of injury, swelling, or ecchymosis. Airway is patent. Throat is clear. NECK: Nontender. No swelling or evidence of injury. No subcutaneous emphysema. Trachea is midline. No thyroid mass. HEART: Regular rate and rhythm. Good peripheral pulses. LUNGS/CHEST: Breath sounds clear and equal bilaterally. No rales, rhonchi, or wheezes. No ecchymosis, subcutaneous emphysema, or tenderness. ABDOMEN: Abdomen soft without tenderness. No palpable masses or organomegaly. No peritoneal signs. No abdominal wall swelling or ecchymosis. EXTREMITIES: No extremity tenderness. Normal muscle tone and function. No thoracolumbar tenderness. NEUROLOGIC: Sensation is grossly intact. Cranial nerve exam reveals face is symmetrical, tongue is midline, speech is clear. SKIN: No abrasions or ecchymosis is noted. No induration or masses noted. PSYCHIATRIC: Alert and oriented. Appropriate behavior and judgment. Limitations: no limitations Course Vital Signs 11/22/21 11/22/21 17:56 22:04 Temperature 97.9 F Pulse Rate 68 62 Respiratory 16 20 Rate Blood Pressure 149/66 130/97 O2 Sat by Pulse 98 100 Oximetry Medical Decision Making - Medical Decision Making The patient was seen and examined. All diagnostics are reviewed. The laboratory overall shows mild decrease in CO2 consistent with dehydration. IV is established and he is hydrated. He receives 2 mg of Ativan with some relief of symptomatology. This was later repeated. He is sleeping on recheck. Due to his history of severe alcohol withdrawal and DTs, it is felt as though he would benefit from admission to the hospital. He is agreeable with this plan. Case is discussed with internal medicine and they're agreeable as well. - Lab Data Result diagrams: 11/22/21 Unknown 11/22/21 Unknown Lab Results 11/22/21 11/22/21 Range/Units Unknown Unknown WBC 8.0 (3.8-10.6) k/uL RBC 5.32 (4.30-5.90) m/uL Hgb 14.1 (13.0-17.5) gm/dL Hct 42.7 (39.0-53.0) % MCV 80.3 (80.0-100.0) fL MCH 26.5 (25.0-35.0) pg MCHC 33.0 (31.0-37.0) g/dL RDW 16.0 H (11.5-15.5) % Plt Count 243 (150-450) k/uL MPV 7.4 Neutrophils % 57 % Lymphocytes % 35 % Monocytes % 5 % Eosinophils % 1 % Basophils % 0 % Neutrophils # 4.6 (1.3-7.7) k/uL Lymphocytes # 2.8 (1.0-4.8) k/uL Monocytes # 0.4 (0-1.0) k/uL Eosinophils # 0.1 (0-0.7) k/uL Basophils # 0.0 (0-0.2) k/uL Sodium 139 (137-145) mmol/L Potassium 4.3 (3.5-5.1) mmol/L Chloride 106 (98-107) mmol/L Carbon Dioxide 19 L (22-30) mmol/L Anion Gap 14 mmol/L BUN 16 (9-20) mg/dL Creatinine 0.76 (0.66-1.25) mg/dL Est GFR (CKD-EPI)AfAm >90 (>60 ml/min/1.73 sqM) Est GFR (CKD-EPI)NonAf >90 (>60 ml/min/1.73 sqM) Glucose 89 (74-99) mg/dL Calcium 9.4 (8.4-10.2) mg/dL Total Bilirubin 0.3 (0.2-1.3) mg/dL AST 32 (17-59) U/L ALT 36 (4-49) U/L Alkaline Phosphatase 108 (38-126) U/L Total Protein 8.7 H (6.3-8.2) g/dL Albumin 4.9 (3.5-5.0) g/dL Lipase 104 (23-300) U/L Serum Alcohol <10 mg/dL Disposition Clinical Impression: Alcohol abuse, Alcohol withdrawal Disposition: ADMITTED IP TO THIS HOSP Condition: Fair Is patient prescribed a controlled substance at d/c from ED?: No Time of Disposition: 00:21 Decision Date: 11/23/21 Decision Time: 00:21
[2021-11-23] MEDS ORDERED: THIAMINE 100 MG/ML 2 ML VIAL IM STA (00:22)
[2021-11-23] MEDS ORDERED: LORazepam 2 MG/ML INJ IV PRN ×2 (00:22)
[2021-11-23] MEDS ORDERED: ACETAMINOPHEN TAB 325 MG TAB PO PRN (00:24)
[2021-11-23] MEDS ORDERED: ONDANSETRON 4 MG/2 ML VIAL IVP PRN (00:24)
[2021-11-23] MEDS ORDERED: NALOXONE 0.4 MG/ML 1 ML VIAL IV PRN (00:24)
[2021-11-23] MEDS: LORazepam 2 MG/ML INJ IV PRN ×6 (02:26→19:42)
[2021-11-23] MEDS ORDERED: MORPHINE SULFATE 4 MG/ML SYRINGE IVP STA (05:50)
[2021-11-23] MEDS: ENOXAPARIN 40 MG/0.4 ML SYRINGE SQ SCH (09:11)
[2021-11-23] MEDS: FOLIC ACID 1 MG TAB PO SCH (09:11)
[2021-11-23] MEDS: MULTIVITAMINS, THERA 1 EACH TAB PO SCH (09:11)
[2021-11-23] MEDS: PANTOPRAZOLE 40 MG/10 ML VIAL IV SCH (09:11)
[2021-11-23] MEDS: MORPHINE SULFATE 4 MG/ML SYRINGE IV PRN ×3 (10:47→19:43)
[2021-11-23] MEDS: THIAMINE 100 MG TAB PO SCH (18:00)
[2021-11-24] MEDS: MORPHINE SULFATE 4 MG/ML SYRINGE IV PRN ×2 (00:03→04:19)
[2021-11-24] MEDS: LORazepam 2 MG/ML INJ IV PRN ×3 (00:04→08:42)
--- NOTE | 2021-11-24 01:04 | P.HPIM ---
History of Present Illness H&P Date: 11/23/21 Chief Complaint: Alcohol withdrawal symptoms Patient is a 36-year-old male with a known history of hypertension, seizure disorder, hepatitis C and history of stomach ulcer and severe alcohol abuse, anxiety/depression bipolar disorder and currently every day smoker presents to ER with complaints of generalized shakiness and alcohol withdrawal symptoms. Patient states that he stopped drinking around 3 AM last night. Patient has been having generalized shakiness, nausea and abdominal discomfort and feeling anxious. Patient does have a history of alcohol withdrawal seizures and delirium tremens in the past. Patient does drink approximately 2/5 of alcohol per day. Denied any complaints of chest pain or shortness of breath. No fever no chills. No cough or sputum production. Patient would like to quit alcohol and needs help. Laboratory data showed WBC 8.0 hemoglobin 14.1 and platelets 243 Sodium 139 potassium 4.3 chloride 106 bicarb is 19 BUN 16 and creatinine 0.76 lipase 104, liver enzymes notelevated. Review of Systems Constitutional: Patient denies any fever or chills . Generalized weakness.. Abdomen: Patient denied nausea vomiting and diarrhea and abdominal pain. Cardiovascular: Patient denies any chest pain or short of breath no palpitations. Respiratory: patient denied any cough is from production. No shortness of breath Neurologic: Patient denied any numbness or tingling headache. Musculoskeletal: Patient denies any complaints of joint swelling or deformity. Skin: Negative Psychiatric: Anxious. Endocrine: No heat or cold intolerance. No recent weight gain. Genitourinary: No dysuria or hematuria. All other 14 point ROS negative except the above Past Medical History Past Medical History: Hypertension, Seizure Disorder Additional Past Medical History / Comment(s): Hepatitis C, stomach ulcer, weight loss, ETOH abuse, kidney stones History of Any Multi-Drug Resistant Organisms: None Reported Additional Past Surgical History / Comment(s): lazy eye surgery, right ankle surgery Past Anesthesia/Blood Transfusion Reactions: No Reported Reaction Past Psychological History: Anxiety, Bipolar, Depression, PTSD Smoking Status: Current some day smoker Past Alcohol Use History: Abuse, Daily Past Drug Use History: Marijuana, Prescription Drug Abuse - Past Family History Father Additional Family Medical History / Comment(s): cirrhosis of liver Mother Additional Family Medical History / Comment(s): cirrhosis of liver and heroin overdose Medications and Allergies Home Medications Medication Instructions Recorded Confirmed Type No Known Home Medications 11/22/21 11/22/21 History Allergies Allergy/AdvReac Type Severity Reaction Status Date / Time tramadol Allergy Hives & Verified 11/22/21 22:52 Causes Seizures Physical Exam Vitals: Vital Signs Temp Pulse Resp BP Pulse Ox 11/23/21 08:00 36.7 F L 69 20 128/83 99 11/23/21 05:09 60 20 115/45 11/23/21 02:31 62 16 121/77 98 11/23/21 01:00 71 16 130/70 96 11/22/21 22:04 62 20 130/97 100 11/22/21 17:56 97.9 F 68 16 149/66 98 Intake and Output 11/22/21 11/23/21 11/23/21 22:59 06:59 14:59 Other: Weight 68.039 kg PHYSICAL EXAMINATION: Patient is lying in the bed comfortably, no acute distress, awake alert and oriented but lethargic and shaky... HEENT: Normocephalic. Neck is supple. Pupils reactive. Nostrils clear. Oral cavity is moist. Neck reveals no JVD, carotid bruits, or thyromegaly. CHEST EXAMINATION: Trachea is central. Symmetrical expansion. Lung carrillo clear to auscultation and percussion. CARDIAC: Normal S1, S2 with no gallops. No murmurs ABDOMEN: Soft. Bowel sounds normal. No organomegaly. No abdominal bruits. Extremities: reveal no edema. No clubbing or cyanosis Neurologically awake, alert, oriented x3, lethargic and shaky. No focal deficits noted Skin: No rash or skin lesions. Psychiatric: Coperative. Could not be assessed completely. Musculoskeletal: No joint swelling or deformity. Normal range of motion. Results CBC & Chem 7: 11/22/21 Unknown 11/22/21 Unknown Labs: Abnormal Lab Results - Last 24 Hours (Table) 11/22/21 11/22/21 Range/Units Unknown Unknown RDW 16.0 H (11.5-15.5) % Carbon Dioxide 19 L (22-30) mmol/L Total Protein 8.7 H (6.3-8.2) g/dL Thrombosis Risk Factor Assmnt - DVT/VTE Prophylaxis DVT/VTE Prophylaxis: Pharmacologic Prophylaxis ordered Assessment and Plan Assessment: Acute alcohol withdrawal symptoms Prior history of DTs and withdrawal seizures. Severe alcohol abuse 2/5 of alcohol and daily basis. Hepatitis C Hypertension History of gastric ulcer Anxiety/depression, PTSD and bipolar disorder Occasional smoking DVT prophylaxis with heparin subcu Plan: patient will be continued on IV hydration. Continue with Ativan and monitor for alcohol withdrawal symptoms. Thiamine and multivitamins. GI and DVT prophylaxis. Symptomatic management for nausea. Follow up closely. Social work will be consulted for alcohol withdrawal programs and follow closely. Time with Patient: Greater than 30
[2021-11-24 04:57] VITALS: RESP 16
[2021-11-24] MEDS: PANTOPRAZOLE 40 MG/10 ML VIAL IV SCH (08:34)
[2021-11-24] MEDS: THIAMINE 100 MG TAB PO SCH (08:34)
[2021-11-24] MEDS: MULTIVITAMINS, THERA 1 EACH TAB PO SCH (08:34)
[2021-11-24] MEDS: FOLIC ACID 1 MG TAB PO SCH (08:34)
[2021-11-24] MEDS: ENOXAPARIN 40 MG/0.4 ML SYRINGE SQ SCH (08:34)
[2021-11-24] MEDS ORDERED: LORazepam 1 MG TAB PO PRN (11:16)
[2021-11-24] MEDS ORDERED: HYDROcodone/APAP 5-325MG 1 EACH TAB PO PRN (11:17)
[2021-11-24] MEDS ORDERED: chlordiazePOXIDE 25 MG CAP PO SCH (11:30)
[2021-11-24 12:31] VITALS: BP 126/69; PULSE 71; TEMP 98.7
--- NOTE | 2021-11-27 11:02 | P.DS ---
Providers Date of admission: 11/23/21 00:24 Expected date of discharge: 11/24/21 Attending physician: Ayanna Bose Primary care physician: Lisa Meek [facility] Course: Final diagnosis Acute alcohol withdrawal symptoms Prior history of DTs and withdrawal seizures. Severe alcohol abuse 2/5 of alcohol and daily basis. Hepatitis C Hypertension History of gastric ulcer Anxiety/depression, PTSD and bipolar disorder Occasional smoking DVT prophylaxis Discharge disposition Patient is being discharged in a stable condition with guarded prognosis to home. Patient will follow-up with Dr. Meek in the outpatient setting upon discharge. Patient is to follow up with [facility] on Sunday as scheduled. Patient given a short librium taper on discharge. Total time taken is greater than 35 minutes. Hospital course This is a 36-year-old male who was recently admitted with alcohol withdrawal and maintained on CIWA protocol. Patient reports to quitting over 12 hours ago and having nausea and vomiting and abdominal pain. Patient reports he is feeling somewhat improved and tolerating diet. Patient will continue on Librium and has an appointment with [facility] on sunday. Patient to follow up with [facility] as well. Currently no reports of chest pain, shortness of breath, or palpitations. Patient is afebrile. No reports of nausea or vomiting and patient is tolerating diet. Patient will be discharged home today. guarded prognosis as patient is high risk for readmission. Physical exam: Gen: This is a 36 year old male who is awake and alert and oriented x3. thin, fraille, appears older than stated age HEENT: Head is atraumatic, normocephalic. Pupils equal, round. Sclerae is anicteric. NECK: Supple. No JVD. No lymphadenopathy. No thyromegaly. LUNGS: Clear to auscultation. No wheezes or rhonchi. No intercostal retractions. HEART: Regular rate and rhythm. No murmur. ABDOMEN: Soft. Bowel sounds are present. No masses. No tenderness. EXTREMITIES: No pedal edema. No calf tenderness. NEUROLOGICAL: Patient is awake, alert and oriented x3. Cranial nerves 2 through 12 are grossly intact. Please refer to medication reconciliation sheet for a list of medications. The impression and plan of care has been dictated by Kathy Friend, Nurse Practitioner as directed. Dr. Carol MD I have performed a history and examination and MDM of this patient, discussed the same with the dictator, and agree with the dictator's assessment and plan as written ,documented as a scribe. Based on total visit time, I have performed more than 50% of the visit. Patient Condition at Discharge: Fair Plan - Discharge Summary Discharge Rx Participant: No New Discharge Prescriptions: New Folic Acid 1 mg PO DAILY #30 tab chlordiazePOXIDE HCl [Librium] 10 mg PO TID 3 Days #12 capsule Multivitamins, Thera [Multivitamin (formulary)] 1 each PO DAILY #30 tab Thiamine [Vitamin B-1] 100 mg PO BID-W/MEALS #60 tab Discharge Medication List Folic Acid 1 mg PO DAILY #30 tab 11/24/21 [Rx] Multivitamins, Thera [Multivitamin (formulary)] 1 each PO DAILY #30 tab 11/24/21 [Rx] Thiamine [Vitamin B-1] 100 mg PO BID-W/MEALS #60 tab 11/24/21 [Rx] chlordiazePOXIDE HCl [Librium] 10 mg PO TID 3 Days #12 capsule 11/24/21 [Rx] Follow up Appointment(s)/Referral(s): Lisa Meek MD [Primary Care Provider] - 11/28/21 9:00 am Patient Instructions/Handouts: Chlordiazepoxide (By mouth), Thiamine (By mouth), Folic Acid (By mouth), Multivitamins, Adult Formula (By mouth) Activity/Diet/Wound Care/Special Instructions: Activity Limited until follow-up Follow-up with primary care provider Follow-up with [facility] Strongly recommend alcohol rehab Avoid all alcohol intake Discharge/Stand Alone Forms: Who Do I Call?, Community Resources, Help In The Home, Outpatient Counseling, AA Meetings [employer] Discharge Disposition: HOME SELF-CARE
== END 2021-11-24 15:32 | disposition home or self-care (01) ==
LOC: EC 17:32 → INTOOBSV 11-23 00:24 → 5NMEDONC 11-23 00:24 → UNDODISIN 11-24 15:32
PROVIDERS: ADMIT Hospitalist; ATTEND Hospitalist
DX: F10.139 Alcohol abuse with withdrawal, unspecified (principal); I10 Essential (primary) hypertension; G40.909 Epilepsy, unspecified, not intractable, without status epilepticus; B19.20 Unspecified viral hepatitis C without hepatic coma; F31.9 Bipolar disorder, unspecified; F43.10 Post-traumatic stress disorder, unspecified; F41.9 Anxiety disorder, unspecified; F17.200 Nicotine dependence, unspecified, uncomplicated; Z88.5 Allergy status to narcotic agent; Z87.11 Personal history of peptic ulcer disease; Z87.442 Personal history of urinary calculi; Z98.890 Other specified postprocedural states; Z87.898 Personal history of other specified conditions; Z83.79 Family history of other diseases of the digestive system; Z81.3 Family history of other psychoactive substance abuse and dependence
CPT/HCPCS: 96376 ×3; 96361 ×2; 96372; 96374; 96375 ×2; 99285; 36415; 80053; 83690; 85025; G0378 ×2; G0480; J2060 ×3; J2270 ×2; J3411; J2405 ×2; J1650; C9113 ×2; 80320; 96360